=== PATIENT | male | born 1955 | race African-American/Black ===

== ENCOUNTER 2016-12-17 09:34 | Outpatient (CLI) | payer BC ==
[~2016-12-17 09:34] MED LIST: ACETAMINOPHEN 325 MG TABLET PO PRN; DIPHENHYDRAMINE HCL 25 MG CAPSULE PO PRN; FUROSEMIDE INJ/PF 20 MG/2 ML SDV IV PRN
[2016-12-17 10:23] LABS: HEMATOCRIT 25.6 % (37.9-51.0); HEMOGLOBIN 8.2 g/dL (13.5-17.0); MEAN CORPUSCULAR HEMOGLOBIN 22.8 pg (27.0-33.4); MEAN CORPUSCULAR VOLUME 71 fl (80-97); RED BLOOD COUNT 3.59 10^6/uL (4.35-5.55); RED CELL DISTRIBUTION WIDTH 20.1 % (11.5-14.0); WHITE BLOOD COUNT 11.2 10^3/uL (4.0-10.5)
[2016-12-17] MEDS ORDERED: NORMAL SALINE 250 ML IV PRN (10:43)
[2016-12-17 17:19] VITALS: BP 149/77
[2016-12-17 17:59] LABS: HEMATOCRIT 32.5 % (37.9-51.0); HGB HCT DIFFERENCE -0.7; MEAN CORPUSCULAR HEMOGLOBIN 23.8 pg (27.0-33.4); MEAN CORPUSCULAR HGB CONC 32.6 g/dL (32.0-36.0); MEAN CORPUSCULAR VOLUME 73 fl (80-97); RED BLOOD COUNT 4.44 10^6/uL (4.35-5.55); RED CELL DISTRIBUTION WIDTH 21.8 % (11.5-14.0); WHITE BLOOD COUNT 11.1 10^3/uL (4.0-10.5)
[2016-12-17 18:05] LABS: HEMOGLOBIN 10.6 g/dL (13.5-17.0)
== END 2016-12-17 18:00 | disposition home or self-care (01) ==
LOC: II 09:34 → 2N 10:16 → II 18:00
PROVIDERS: ATTEND Internal Medicine Medical Oncology
PROC: 30233N1 Transfusion of Nonautologous Red Blood Cells into Peripheral Vein, Percutaneous Approach (ICD-10-PCS; principal; 2016-12-17)
DX: D64.9 Anemia, unspecified (principal); N18.4 Chronic kidney disease, stage 4 (severe)
CPT/HCPCS: 86900; 86901; 36415; 36430; 86850; 85027; 86920; P9016

== ENCOUNTER 2018-02-22 12:08 | Emergency (ER) | payer MEDICARE, BC ==
--- NOTE | 2018-02-22 13:22 | ER Document Report ---
ED Medical Screen (RME) - General Chief Complaint: Flank Pain Stated Complaint: BACK PAIN Time Seen by Provider: 02/22/18 13:21 TRAVEL OUTSIDE OF THE [place] IN LAST 30 DAYS: No - HPI Notes: 02/22/18 13:22 Right flank pain ongoing for a few days increase today. Does have a history of kidney disease along atrial fibrillation congestive heart failure. Denies any fevers chills or difficulty in urinating. - Related Data Allergies/Adverse Reactions: No Known Allergies Allergy (Verified 02/22/18 12:09) Past Medical History - Past Medical History Cardiac Medical History: Reports: Hx Congestive Heart Failure, Hx Hypercholesterolemia, Hx Hypertension Neurological Medical History: Reports: Hx Cerebrovascular Accident Endocrine Medical History: Reports: Hx Diabetes Mellitus Type 2 Renal/ Medical History: Reports: Hx End Stage Renal Disease, Hx Renal Insufficiency. Denies: Hx Peritoneal Dialysis Psychiatric Medical History: Reports: Hx Depression Past Surgical History: Reports: Hx Urinary Tract Surgery - Immunizations Hx Diphtheria, Pertussis, Tetanus Vaccination: No History of Influenza Vaccine for 03/2017 - 08/2017 Season: Refused Review of Systems - Review of Systems Constitutional: No symptoms reported EENT: No symptoms reported Cardiovascular: No symptoms reported Respiratory: No symptoms reported Gastrointestinal: No symptoms reported Genitourinary: Flank pain Male Genitourinary: No symptoms reported Musculoskeletal: No symptoms reported Skin: No symptoms reported Hematologic/Lymphatic: No symptoms reported Neurological/Psychological: No symptoms reported Physical Exam - Vital signs Vitals: Temp Pulse Resp BP Pulse Ox 98.5 F 89 16 166/71 H 100 02/22/18 12:12 02/22/18 12:12 02/22/18 12:12 02/22/18 12:12 02/22/18 12:12 - Respiratory Respiratory status: No respiratory distress Chest status: Nontender Breath sounds: Normal Chest palpation: Normal Course - Vital Signs Vital signs: Temp Pulse Resp BP Pulse Ox 98.5 F 89 16 166/71 H 100 02/22/18 12:12 02/22/18 12:12 02/22/18 12:12 02/22/18 12:12 02/22/18 12:12 Doctor's Discharge - Discharge Referrals: ALEXIS RUBIO MD [Primary Care Provider] - Follow up as needed
[2018-02-22 14:25] LABS: ABSOLUTE BASOPHILS # (AUTO) 0.1 10^3/uL (0.0-0.2); ABSOLUTE EOSINOPHILS # (AUTO) 0.4 10^3/uL (0.0-0.6); ABSOLUTE LYMPHOCYTES (AUTO) 1.1 10^3/uL (0.5-4.7); ABSOLUTE MONOCYTES (AUTO) 0.9 10^3/uL (0.1-1.4); ABSOLUTE NEUT (AUTO) 7.8 10^3/uL (1.7-8.2); BASOPHILS % (AUTO) 0.9 % (0-2); HEMATOCRIT 28.2 % (37.9-51.0); HEMOGLOBIN 9.3 g/dL (13.5-17.0); MEAN CORPUSCULAR HEMOGLOBIN 25.8 pg (27.0-33.4); MEAN CORPUSCULAR VOLUME 78 fl (80-97); MONOCYTES % (AUTO) 8.6 % (3-13); PLATELET COUNT 266 10^3/uL (150-450); RED BLOOD COUNT 3.62 10^6/uL (4.35-5.55); RED CELL DISTRIBUTION WIDTH 21.5 % (11.5-14.0); SEGMENTED NEUTROPHILS % (AUTO) 75.5 % (42-78); TOTAL CELLS COUNTED % (AUTO) 100 %; WHITE BLOOD COUNT 10.4 10^3/uL (4.0-10.5)
--- NOTE | 2018-02-22 14:40 | RADIOLOGY REPORT (SQ) ---
EXAM DESCRIPTION: CT LTD RENAL STONE PROTOCOL ON COMPLETED DATE/TIME: 02/22/2018 1:58 pm REASON FOR STUDY: right Yflank right flank and right lower quadrant pain COMPARISON: CT abdomen and pelvis 02/01/2015 TECHNIQUE: CT scan of the abdomen and pelvis performed without intravenous or oral contrast. Images reviewed with lung, soft tissue, and bone windows. Reconstructed coronal and sagittal MPR images revi ewed. All images stored on PACS. All CT scanners at this facility use dose modulation, iterative reconstruction, and/or weight based d osing when appropriate to reduce radiation dose to as low as reasonably achievable (ALARA). [facility]: Dose Right [facility]: CareDose [facility]: Dose Right [facility]: Teradose 4D [facility]: [employer] RADIATION DOSE: CT Rad equipment meets quality standard of care and radiation dose reduction techniq ues were employed. CTDIvol: 18.6 mGy. DLP: 1096 mGy-cm.mGy. LIMITATIONS: None. FINDINGS: LOWER CHEST: No significant findings. No nodules or infiltrates. NON-CONTRASTED LIVER, SPLEEN, ADRENALS: Evaluation limited by lack of IV contrast. No identified sign ificant masses. PANCREAS: No masses. No peripancreatic inflammatory changes. GALLBLADDER: No identified stones by CT criteria. No inflammatory changes to suggest cholecystitis. RIGHT KIDNEY AND URETER: No suspicious masses. Assessment limited by lack of IV contrast. No signif icant calcifications. No hydronephrosis or hydroureter. LEFT KIDNEY AND URETER: No suspicious masses. Assessment limited by lack of IV contrast. No signifi cant calcifications. No hydronephrosis or hydroureter. AORTA AND RETROPERITONEUM: No aneurysm. No retroperitoneal masses or adenopathy. BOWEL AND PERITONEAL CAVITY: No obvious masses or inflammatory changes. No free fluid. APPENDIX: Normal. PELVIS, BLADDER, AND ABDOMINAL WALL:No abnormal masses. No free fluid. Bladder normal. BONES: Diffuse degenerative changes lumbar spine. OTHER: No other significant finding. IMPRESSION: NO SIGNIFICANT OR ACUTE PROCESS IN THE ABDOMEN OR PELVIS. COMMENT: Quality ID # [id number]: Final reports with documentation of one or more dose reduction techniques (e.g., Automated exposure control, adjustment of the mA and/or kV according to patient size, use of iterative reconstruction technique) TECHNICAL DOCUMENTATION: JOB ID: [id number] [employer]- All Rights Reserved Reading location - IP/workstation name: [email or web address]
[2018-02-22 14:45] LABS: ALANINE AMINOTRANSFERASE 16 U/L (21-72); ALBUMIN 3.5 g/dL (3.5-5.0); ALKALINE PHOSPHATASE 57 U/L (38-126); ANION GAP 14 (5-19); ASPARTATE AMINO TRANSFERASE 11 U/L (17-59); BILIRUBIN,DIRECT 0.4 mg/dL (0.0-0.4); BILIRUBIN,TOTAL 0.4 mg/dL (0.2-1.3); BLOOD UREA NITROGEN 53 mg/dL (7-20); CALCIUM 8.6 mg/dL (8.4-10.2); CARBON DIOXIDE 21 mmol/L (22-30); CHLORIDE 110 mmol/L (98-107); GLUCOSE 215 mg/dL (75-110); LIPASE 109.4 U/L (23-300); POTASSIUM 4.9 mmol/L (3.6-5.0); SODIUM 144.8 mmol/L (137-145); TOTAL PROTEIN 6.4 g/dL (6.3-8.2)
[2018-02-22 15:04] LABS: APPEARANCE,URINE CLEAR; BILIRUBIN,URINE NEGATIVE (NEGATIVE); COLOR,URINE YELLOW; GLUCOSE, URINE NEGATIVE (NEGATIVE); KETONES,URINE NEGATIVE (NEGATIVE); LEUKOCYTE ESTERASE,URINE SMALL (NEGATIVE); NITRITE,URINE NEGATIVE (NEGATIVE); PROTEIN,URINE 100 mg/dL (NEGATIVE); URINE SPECIFIC GRAVITY 1.011; UROBILINOGEN,URINE NEGATIVE mg/dL (<2.0)
[2018-02-22] MEDS ORDERED: OXYCODONE-ACETAMINOPHEN 5-325 MG TABLET PO ONE (15:35)
--- NOTE | 2018-02-22 15:36 | ER Document Report ---
ED General - General Chief Complaint: Flank Pain Stated Complaint: BACK PAIN Time Seen by Provider: 02/22/18 13:21 Notes: Patient is complaining of pain in the right back/flank region that started evening. It has been constant and progressively worsening in intensity. Patient starts in the right CVA region and goes across the back to the left side of his back in a similar location. Patient has a history of kidney disease and is in stage IV kidney failure followed by Dr. Sutton locally. Current pain is worse with walking or moving, turning over on the stretcher. Patient did have an appointment with a local urologist and had a scan of his urinary tract in the office. He has a history of scarring of the urethra and having catheterization procedures to relieve that obstruction. His most recent such procedure was on December 22. He is currently been prescribed Flomax since that office visit on . Patient denies any fever or chills or sweats. Denies any difficulty or burning urinations. Patient is an NIDDM, hypertensive, history of congestive heart failure. Has been anemic in the past and required transfusions. Has also gotten transfusions of iron. TRAVEL OUTSIDE OF THE [place] IN LAST 30 DAYS: No - Related Data Allergies/Adverse Reactions: No Known Allergies Allergy (Verified 02/22/18 12:09) Past Medical History - Social History Smoking Status: Never Smoker Family History: Reviewed & Not Pertinent, DM, Hypertension Patient has suicidal ideation: No Patient has homicidal ideation: No - Past Medical History Cardiac Medical History: Reports: Hx Congestive Heart Failure, Hx Hypercholesterolemia, Hx Hypertension Neurological Medical History: Reports: Hx Cerebrovascular Accident Endocrine Medical History: Reports: Hx Diabetes Mellitus Type 2 Renal/ Medical History: Reports: Hx End Stage Renal Disease, Hx Renal Insufficiency Psychiatric Medical History: Reports: Hx Depression Past Surgical History: Reports: Hx Urinary Tract Surgery - Immunizations Hx Diphtheria, Pertussis, Tetanus Vaccination: No Review of Systems - Review of Systems Notes: REVIEW OF SYSTEMS: CONSTITUTIONAL : Denies fever. EENT: Denies eye, ear, nose or mouth or throat pain or other symptoms. CARDIOVASCULAR: Denies chest pain. RESPIRATORY: Denies cough, chest congestion, or shortness of breath. GASTROINTESTINAL: Denies abdominal pain or nausea, vomiting, or diarrhea. GENITOURINARY: Denies difficulty or painful urinating, urinary frequency, blood in urine. MUSCULOSKELETAL: See HPI. SKIN: Denies rash or skin lesions. NEUROLOGICAL: Denies LOC or altered mental status. Denies headache. Denies sensory loss or motor deficits. ALL OTHER SYSTEMS REVIEWED AND NEGATIVE. Physical Exam - Vital signs Vitals: Temp Pulse Resp BP Pulse Ox 98.5 F 89 16 166/71 H 100 02/22/18 12:12 02/22/18 12:12 02/22/18 12:12 02/22/18 12:12 02/22/18 12:12 Interpretation: Hypertensive - Mild Notes: PHYSICAL EXAMINATION: GENERAL: Well-appearing, in no acute distress. HEAD: Atraumatic, normocephalic. EYES: Pupils equal round and reactive to light, extraocular movements intact. ENT: oropharynx clear without exudates. Moist mucous membranes. NECK: Normal range of motion, supple. LUNGS: Breath sounds clear and equal bilaterally. HEART: Regular rate and rhythm without murmurs. ABDOMEN: Soft, nontender. No guarding or rebound. No masses. BACK: No tenderness throughout entire back. EXTREMITIES: Normal range of motion without pain. NEUROLOGICAL: Normal speech, normal gait. Normal sensory, motor, and reflex exams. Awake, alert, and oriented x3. Cranial nerves normal. PSYCH: Normal mood, normal affect. SKIN: Warm, dry, no rashes. - Notes Notes: PHYSICAL EXAMINATION: GENERAL: Well-appearing, in no acute distress. HEAD: Atraumatic, normocephalic. EYES: Pupils equal round and reactive to light, extraocular movements intact. ENT: oropharynx clear without exudates. Moist mucous membranes. NECK: Normal range of motion, supple. LUNGS: Breath sounds clear and equal bilaterally. HEART: Regular rate and rhythm without murmurs. ABDOMEN: Soft, nontender. No guarding or rebound. No masses. BACK: Tender in the right CVA/flank region. No tenderness of the vertebra of the lumbar spine. Denies neck pain. Denies joint pain or swelling. EXTREMITIES: Normal range of motion without pain. NEUROLOGICAL: Appears to be in pain when he moves on the stretcher or stands up. Normal speech, normal gait. Normal sensory, motor, and reflex exams. Awake, alert, and oriented x3. Cranial nerves normal. PSYCH: Normal mood, normal affect. SKIN: Warm, dry, no rashes. Course - Vital Signs Vital signs: Temp Pulse Resp BP Pulse Ox 98.8 F 69 16 161/80 H 98 02/22/18 16:07 02/22/18 16:07 02/22/18 16:07 02/22/18 16:07 02/22/18 16:07 - Laboratory Result Diagrams: 02/22/18 14:10 02/22/18 14:10 Laboratory results interpreted by me: 02/22/18 02/22/18 02/22/18 14:10 14:10 14:44 RBC 3.62 L Hgb 9.3 L Hct 28.2 L MCV 78 L MCH 25.8 L RDW 21.5 H Lymphocytes % 11.0 L Chloride 110 H Carbon Dioxide 21 L BUN 53 H Creatinine 4.12 H Est GFR ( Amer) 18 L Est GFR (Non-Af Amer) 15 L Glucose 215 H AST 11 L ALT 16 L Urine Protein 100 H Ur Leukocyte Esterase SMALL H - Diagnostic Test Radiology reviewed: Image reviewed, Reports reviewed - CT scan of the abdomen and pelvis without contrast is normal. Discharge - Discharge Clinical Impression: Acute flank pain, Renal insufficiency Condition: Stable Disposition: HOME, SELF-CARE Additional Instructions: Flank Pain We weren't able to prove an exact cause for your flank pain. Pain in the flank can be caused by a muscle strain or spasm. Sometimes a kidney stone causes pain, but can't be found on our tests. Infection in the kidney should be evident on a urine test. Early shingles can occasionally cause flank pain, without the rash that proves the diagnosis. On rare occasions, disease of the pancreas, aorta, spleen, or colon can create pain in the flank. At this time, there's no evidence of a dangerous condition, and it seems safe for you to be at home. If the pain goes away and does not come back, no further testing will be needed. If pain persists, or becomes more severe, we may need to repeat some tests or order additional new testing. Blood in the urine, urgency to urinate frequently, and pain that radiates to the groin can indicate a kidney stone. Fever may mean that the pain is due to infection, either of the kidney or the colon (diverticulitis). If your pain is early shingles, you should develop an eruption of blisters in the painful area within a few days. Call the doctor or return if you have pain that is spreading or becoming more severe, pain that does not resolve with time, fever, or any other new symptoms. NORMAL EXAM AND WORKUP: At this time, your examination and workup show no significant abnormality. No significant abnormal physical findings are noted. All laboratory, EKG, and imaging (x-ray, CT scans, ultrasound) studies that were ordered show no significant abnormality. Although your examination and all studies that were ordered showed no significant abnormal finding, there are no examinations and no studies that are 100% accurate. There is always the possibility that some abnormality could exist and not be detected with physical examination or within the limits and capabilities of laboratory and other studies. You should return or follow up as you were instructed on your visit today for further evaluation if your symptoms do not resolve. ORAL NARCOTIC MEDICATION: You have been given a prescription for pain control. This medication is a narcotic. It's best taken with food, as nausea can result if taken on an empty stomach. Don't operate machinery or drive within six hours of taking this medication. Do not combine this medicine with alcohol, or with any medication which can cause sedation (such as cold tablets or sleeping pills) unless you get permission from the physician. Narcotics tend to cause constipation. If possible, drink plenty of fluids and eat a diet high in fiber and fruits. FOLLOW-UP CARE: If you have been referred to a physician for follow-up care, call the physician s office for an appointment as you were instructed or within the next two days. If you experience worsening or a significant change in your symptoms, notify the physician immediately or return to the Emergency Department at any time for re-evaluation. See your doctor in 2-3 days if you continue to have symptoms and pain. Return for us to reevaluate at any time if you develop high fevers or have other new or worsening symptoms. Prescriptions: Oxycodone HCl/Acetaminophen [Percocet 5-325 mg Tablet] 1 - 2 tab PO Q6HP PRN # 12 tablet PRN Reason: Referrals: ALEXIS RUBIO MD [ACTIVE STAFF] - Follow up as needed
[2018-02-22 16:10] VITALS: BP 161/80
== END 2018-02-22 16:11 | disposition home or self-care (01) ==
LOC: ER 12:08
DX: R10.9 Unspecified abdominal pain (principal); M54.9 Dorsalgia, unspecified; I12.9 Hypertensive chronic kidney disease with stage 1 through stage 4 chronic kidney disease, or unspecified chronic kidney disease; E11.22 Type 2 diabetes mellitus with diabetic chronic kidney disease; N18.4 Chronic kidney disease, stage 4 (severe)
CPT/HCPCS: 99284; 36415; 87086; 83690; 85025; 80053; 81001; 76380; A9270

== ENCOUNTER 2018-05-22 17:59 | Emergency (ER) | payer MEDICARE, BC ==
[2018-05-22 18:29] LABS: ABSOLUTE BASOPHILS # (AUTO) 0.1 10^3/uL (0.0-0.2); ABSOLUTE LYMPHOCYTES (AUTO) 1.6 10^3/uL (0.5-4.7); ABSOLUTE MONOCYTES (AUTO) 1.1 10^3/uL (0.1-1.4); ABSOLUTE NEUT (AUTO) 9.8 10^3/uL (1.7-8.2); BASOPHILS % (AUTO) 0.6 % (0-2); EOSINOPHILS % (AUTO) 0.2 % (0-6); HEMATOCRIT 30.1 % (37.9-51.0); HEMOGLOBIN 9.9 g/dL (13.5-17.0); LYMPHOCYTES % (AUTO) 12.6 % (13-45); MEAN CORPUSCULAR HEMOGLOBIN 23.4 pg (27.0-33.4); MEAN CORPUSCULAR HGB CONC 32.9 g/dL (32.0-36.0); MEAN CORPUSCULAR VOLUME 71 fl (80-97); PLATELET COUNT 425 10^3/uL (150-450); RED BLOOD COUNT 4.22 10^6/uL (4.35-5.55); SEGMENTED NEUTROPHILS % (AUTO) 77.6 % (42-78); TOTAL CELLS COUNTED % (AUTO) 100 %; WHITE BLOOD COUNT 12.7 10^3/uL (4.0-10.5)
[2018-05-22 18:41] LABS: ANION GAP 18 (5-19); BLOOD UREA NITROGEN 81 mg/dL (7-20); CALCIUM 9.2 mg/dL (8.4-10.2); CARBON DIOXIDE 16 mmol/L (22-30); CHLORIDE 108 mmol/L (98-107); GLUCOSE 218 mg/dL (75-110); POTASSIUM 5.1 mmol/L (3.6-5.0); SODIUM 142.1 mmol/L (137-145)
--- NOTE | 2018-05-22 19:19 | ER Document Report ---
ED General - General Chief Complaint: Abnormal Lab Results Stated Complaint: ABNORMAL LABS Time Seen by Provider: 05/22/18 18:18 Notes: Patient is a 62-year-old male with a past history of essential hypertension, chronic kidney disease secondary to essential hypertension who presents with concerns of possible hyperkalemia. Patient states that she was contacted by her physician internist Dr. Bruner regarding concerns of a potassium of 6.2 obtained on outpatient laboratory today. The patient states that he did not have any symptoms, otherwise feels well and is here simply because of concerns of possible hyperkalemia. States that he had mild hyperkalemia in the past but has never required hospitalization or advanced treatment for this. States that he will likely be advancing to dialysis and is scheduled to have a dialysis catheter placed this upcoming week. Denies any recent medication changes. Has been taking all medications as directed. TRAVEL OUTSIDE OF THE [place] IN LAST 30 DAYS: No - Related Data Allergies/Adverse Reactions: No Known Allergies Allergy (Verified 05/22/18 17:59) Past Medical History - General Information source: Patient - Social History Smoking Status: Never Smoker Frequency of alcohol use: None Drug Abuse: None Lives with: Spouse/Significant other Family History: Reviewed & Not Pertinent, DM, Hypertension Patient has suicidal ideation: No Patient has homicidal ideation: No - Past Medical History Cardiac Medical History: Reports: Hx Congestive Heart Failure, Hx Hypercholesterolemia, Hx Hypertension Denies: Hx Coronary Artery Disease, Hx Heart Attack Pulmonary Medical History: Denies: Hx Asthma, Hx Bronchitis, Hx COPD, Hx Pneumonia Neurological Medical History: Denies: Hx Cerebrovascular Accident, Hx Seizures Endocrine Medical History: Reports: Hx Diabetes Mellitus Type 2 Renal/ Medical History: Reports: Hx End Stage Renal Disease, Hx Renal Insufficiency. Denies: Hx Peritoneal Dialysis Musculoskeletal Medical History: Reports Hx Arthritis - GENERALIZED Psychiatric Medical History: Reports: Hx Depression Past Surgical History: Reports: Hx Urinary Tract Surgery - Immunizations Hx Diphtheria, Pertussis, Tetanus Vaccination: Yes Review of Systems - Review of Systems Notes: Constitutional: Negative for fever. HENT: Negative for sore throat. Eyes: Negative for visual changes. Cardiovascular: Negative for chest pain. Respiratory: Negative for shortness of breath. Gastrointestinal: Negative for abdominal pain, vomiting or diarrhea. Genitourinary: Negative for dysuria. Musculoskeletal: Negative for back pain. Skin: Negative for rash. Neurological: Negative for headaches, weakness or numbness. 10 point ROS negative except as marked above and in HPI. Physical Exam - Vital signs Vitals: Temp Pulse Resp BP Pulse Ox 98.1 F 88 16 188/87 H 98 05/22/18 18:03 05/22/18 18:03 05/22/18 18:03 05/22/18 18:03 05/22/18 18:03 Interpretation: Hypertensive Notes: PHYSICAL EXAMINATION: GENERAL: Well-appearing, well-nourished and in no acute distress. HEAD: Atraumatic, normocephalic. EYES: Pupils equal round and reactive to light, extraocular movements intact, sclera anicteric, conjunctiva are normal. ENT: nares patent, oropharynx clear without exudates. Moist mucous membranes. NECK: Normal range of motion, supple without lymphadenopathy LUNGS: Breath sounds clear to auscultation bilaterally and equal. No wheezes rales or rhonchi. HEART: Regular rate and rhythm without murmurs ABDOMEN: Soft, nontender, normoactive bowel sounds. No guarding, no rebound. No masses appreciated. EXTREMITIES: Normal range of motion, no pitting or edema. No cyanosis. NEUROLOGICAL: No focal neurological deficits. Moves all extremities spontaneously and on command. PSYCH: Normal mood, normal affect. SKIN: Warm, Dry, normal turgor, no rashes or lesions noted. Course - Re-evaluation Re-evalutation: 05/22/18 19:18 Patient presents today with his physician internist being concerned that his potassium was elevated to 6.2 on an outpatient check. This appears to be a lab error has the patient's potassium is 5.1 on recheck today similar to his previous level secondary to chronic kidney disease. EKG without any acute changes. Patient is otherwise asymptomatic. No indication for any acute medical therapies for his hyperkalemia or emergent dialysis. I have advised that he should follow closely with his physician internist. At this time will discharge with return precautions and follow-up recommendations. Verbal discharge instructions given a the bedside and opportunity for questions given. Patient is in agreement with this plan and has verbalized understanding of return precautions and the need for primary care follow-up in the next 24-72 hours. - Vital Signs Vital signs: Temp Pulse Resp BP Pulse Ox 98.1 F 88 9 L 173/91 H 100 05/22/18 18:03 05/22/18 18:03 05/22/18 19:01 05/22/18 19:01 05/22/18 19:01 - Laboratory Result Diagrams: 05/22/18 18:20 05/22/18 18:20 Laboratory results interpreted by me: 05/22/18 05/22/18 18:20 18:20 WBC 12.7 H RBC 4.22 L Hgb 9.9 L Hct 30.1 L MCV 71 L MCH 23.4 L RDW 23.0 H Lymphocytes % 12.6 L Absolute Neutrophils 9.8 H Potassium 5.1 H Chloride 108 H Carbon Dioxide 16 L BUN 81 H Creatinine 3.65 H Est GFR ( Amer) 20 L Est GFR (Non-Af Amer) 17 L Glucose 218 H - EKG Interpretation by Me Additional EKG results interpreted by me: 05/22/18 19:18 Sinus rhythm. Rate 78. No ST elevations or depressions. Flattening of the T waves in V5 and 6. QTC is 433. Discharge - Discharge Clinical Impression: Essential hypertension, Hyperkalemia Chronic kidney disease Qualifiers: Chronic kidney disease stage: unspecified stage Qualified Code(s): N18.9 - Chronic kidney disease, unspecified Condition: Good Disposition: HOME, SELF-CARE Additional Instructions: Your potassium is 5.1 today. While this is mildly high, it is not high enough to do anything emergently at this time. Your EKG is otherwise normal. Please follow-up with your physician internist regarding today's emergency. Return for any additional concerns you may have.
[2018-05-22 19:24] VITALS: BP 173/91
--- NOTE | 2018-05-22 19:42 | EKG REPORT ---
SEVERITY:- BORDERLINE ECG - SINUS RHYTHM BORDERLINE T WAVE ABNORMALITIES : Confirmed by: Mau Montanez MD 22-May-2018 19:42:26
== END 2018-05-22 19:41 | disposition home or self-care (01) ==
LOC: ER 17:59
DX: E87.5 Hyperkalemia (principal); I13.2 Hypertensive heart and chronic kidney disease with heart failure and with stage 5 chronic kidney disease, or end stage renal disease; I50.9 Heart failure, unspecified; E11.22 Type 2 diabetes mellitus with diabetic chronic kidney disease; N18.6 End stage renal disease; E78.00 Pure hypercholesterolemia, unspecified
CPT/HCPCS: 36415; 80048; 85025; 93005; 93010; 99284

== ENCOUNTER 2018-05-25 09:10 | Day surgery (SDC) | payer MEDICARE, BC ==
[2018-05-25] MEDS ORDERED: OXYCODONE-ACETAMINOPHEN 5-325 MG TABLET ONE (09:52)
[2018-05-25] MEDS ORDERED: DIAZEPAM 5 MG TABLET ONE (09:52)
[2018-05-25 10:13] LABS: HEMATOCRIT 32.6 % (37.9-51.0); HEMOGLOBIN 10.6 g/dL (13.5-17.0); MEAN CORPUSCULAR HEMOGLOBIN 23.1 pg (27.0-33.4); MEAN CORPUSCULAR HGB CONC 32.4 g/dL (32.0-36.0); MEAN CORPUSCULAR VOLUME 71 fl (80-97); PLATELET COUNT 442 10^3/uL (150-450); RED BLOOD COUNT 4.57 10^6/uL (4.35-5.55); RED CELL DISTRIBUTION WIDTH 22.8 % (11.5-14.0); WHITE BLOOD COUNT 12.8 10^3/uL (4.0-10.5)
[2018-05-25 10:37] LABS: ANION GAP 13 (5-19); BLOOD UREA NITROGEN 67 mg/dL (7-20); CALCIUM 9.3 mg/dL (8.4-10.2); CARBON DIOXIDE 20 mmol/L (22-30); CHLORIDE 111 mmol/L (98-107); GLUCOSE 125 mg/dL (75-110); POTASSIUM 5.2 mmol/L (3.6-5.0); SODIUM 143.7 mmol/L (137-145)
[2018-05-25] MEDS ORDERED: CEFAZOLIN INJ 1 GM VIAL ONE (10:43)
[2018-05-25] MEDS ORDERED: LIDOCAINE 0.5% INJ-PF (5 MG/ML) 50 ML SDV ONE (10:43)
[2018-05-25] MEDS ORDERED: FENTANYL CITRATE INJ/PF 100 MCG/2 ML AMPUL ONE (10:43)
[2018-05-25] MEDS ORDERED: MIDAZOLAM 2 MG/2 ML INJ ONE (10:43)
[2018-05-25] MEDS ORDERED: BACITRACIN INJ 50,000 UNIT VIAL ONE (10:44)
[2018-05-25] MEDS ORDERED: CEFAZOLIN INJ 1 GM VIAL IV ONE (10:48)
[2018-05-25] MEDS ORDERED: CEFAZOLIN 1 GM/D5W RTU 0 GM/0 ML RTUPB IV ONE (10:52)
--- NOTE | 2018-05-25 12:05 | PDOC H&P ---
General Chief Complaint: This patient is referred in for placement of a permacatheter. His glomerular filtration rate has gone to 13 and his fairing man, Dr. Sutton thinks he needs to be on hemodialysis - Diagnosis (1) Chronic kidney disease Is this a Current Diagnosis?: Yes (2) Diabetes mellitus type 2 in nonobese Is this a Current Diagnosis?: Yes (3) Hx of ischemic right MCA stroke Is this a Current Diagnosis?: Yes (4) Hypertension Is this a Current Diagnosis?: Yes - Current Medications/Allergies Home Medications: Furosemide [Lasix 20 mg Tablet] 20 mg PO QAM 07/07/14 Aspirin [Ecotrin] 81 mg PO DAILY PRN 09/04/14 Potassium Chloride 10 meq PO DAILY 09/04/14 Apixaban [Eliquis 2.5 mg Tablet] 2.5 mg PO BID 07/07/15 Allergies/Adverse Reactions: No Known Allergies Allergy (Verified 05/25/18 09:55) Past Medical History Cardiac Medical History: Reports: Congestive Heart Failure, Hyperlipidema, Hypertension Denies: Coronary Artery Disease, Myocardial Infarction Pulmonary Medical History: Denies: Asthma, Bronchitis, Chronic Obstructive Pulmonary Disease (COPD), Pneumonia Neurological Medical History: Denies: Seizures Endocrine Medical History: Reports: Diabetes Mellitus Type 2 Renal/ Medical History: Reports: End Stage Renal Disease Musculoskeltal Medical History: Reports: Arthritis - GENERALIZED Psychiatric Medical History: Reports: Depression Hematology: Reports: Anemia, Bleeding Tendencies Family History Family History: Reviewed & Not Pertinent, DM, Hypertension Parental Family History Reviewed: No Children Family History Reviewed: No Sibling(s) Family History Reviewed.: No Social History Smoking Status: Never Smoker Frequency of Alcohol Use: None Hx Recreational Drug Use: No Drugs: None Hx Prescription Drug Abuse: No Physical Exam Vital Signs: Temp Pulse Resp BP Pulse Ox 98.2 F 75 18 158/96 H 100 05/25/18 09:15 05/25/18 09:15 05/25/18 09:15 05/25/18 09:15 05/25/18 09:15 Intake & Output 05/24/18 05/25/18 05/26/18 06:59 06:59 06:59 Weight 104.78 kg Additional comments: Constitutional: Well-developed well-nourished -Chinese gentleman. No apparent acute distress. Eyes: Mucous membranes pink and moist, pupils equal and reactive to light. Conjunctiva normal. Cornea normal. ENT: Hearing grossly normal. External pinna normal to inspection. Teeth intact. Tongue normal to inspection. Cardiac: Heart sounds 1 and 2 normal. No murmurs. Respiratory breath sounds are present bilaterally, normal. Normal respiratory effort. Skin: Normal to inspection. No ulcers, normal turgor. Abdomen: Soft, nontender. Liver and spleen are not palpably enlarged. Bowel sounds are normal. Possible small umbilical hernia noted. Surgical scars absent. Psychiatric: Judgment, memory, insight seem normal. Mood is pleasant and appropriate. Extremities: Upper extremities show normal range of movement. Pulses present noted to the radial arteries. Capillary refill normal. No cyanosis noted. No muscle wasting noted. Impression/Plan Plan: In this patient with chronic kidney disease stage V on the verge of needing hemodialysis, PermCath insertion to be done. The procedure was described to the patient and his significant other. Also the risks, benefits, expected outcome and alternatives. His questions and concerns were fully addressed and he wishes to proceed. The patient understands that he will need to have a fistula placed early so as to keep the permacatheter time to a minimum.
--- NOTE | 2018-05-25 12:07 | Discharge Summary ---
Discharge Summary (SDC) - Discharge Final Diagnosis: #1 chronic kidney disease stage V. 2. Diabetes mellitus type 2. 3. Hypertension. Date of Surgery: 05/25/18 Discharge Date: 05/25/18 Condition: Good Treatment or Instructions: Discharge home [after recovery per ASU criteria]. Diet , [renal],as tolerated, when fully awake advance as tolerated. Activities within moderation encouraged. Follow up in my office by appointment in about [1 week]. Call for appointment. Leave wounds [covered], [keep clean and dry, until office visit in 1 week]. Hold of on school/work [until evaluation in office]. Meds per med rec. May use [id number] medication for pain. May shower [in 48 hrs], [try to keep operated area as dry as possible]. Referrals: MAI KIM MD [ACTIVE STAFF] - 06/03/18 2:15 pm Discharge Diet: Other (Comments) - Renal, diabetic. Respiratory Treatments at Home: Deep Breathing/Coughing Discharge Activity: Activity As Tolerated Report the Following to Your Physician Immediately: Shortness of Breath, Unusual Bleeding
--- NOTE | 2018-05-25 12:10 | Operative Report ---
Operative Report DATE OF SURGERY: 05/25/18 PREOPERATIVE DIAGNOSIS: #1 chronic kidney disease stage V. 2. Diabetes mellitus type 2. 3. Hypertension. POSTOPERATIVE DIAGNOSIS: #1 chronic kidney disease stage V. 2. Diabetes mellitus type 2. 3. Hypertension. OPERATION: 1. Ultrasound-guided real-time access in the right internal jugular vein. 2. PermCath insertion via real-time ultrasound-guided access of the right internal jugular vein. 3. Angiogram and interpretation. SURGEON: MAI CALLAHAN METAL MACHINE OPERATOR: None. ANESTHESIA: Moderate Sedation TISSUE REMOVED OR ALTERED: Not applicable. COMPLICATIONS: None. ESTIMATED BLOOD LOSS: 5 mL. INTRAOPERATIVE FINDINGS: Of a satisfactory right internal jugular vein, estimated to 1.5 cm satisfactory access under real-time ultrasound guidance. Good position with the tip of the catheter down in the right atrial pool. Easy egress of blood and ingress of heparinized solution through both ports. PROCEDURE: In this patient with chronic kidney disease stage V verging on end-stage renal disease, primarily filtration rate of 13, hemodialysis is now indicated. A permacatheter is to be inserted in order to accomplish this. He will need to transition to a catheter-based dialysis access in the near future. After obtaining informed consent, the patient was taken to the [Hog Confinement System Manager] and positioned supine. The [right neck] and chest were prepared with chlorhexidine and draped out with sterile linen. After the " universal timeout", in which it was verified that the patient continued to receive antibiotic, the procedure commenced. A steriley sheathed ultrasound probe was used to evaluate the [ right internal jugular] vein. Local anesthesia was infiltrated adjacent to the probe. Access into the [right internal jugular] vein was obtained using a micropuncture needle, followed by micropuncture wire and then a micropuncture catheter. This was followed by introduction of a 0.035 guidewire the tip of which was placed down into the inferior vena cava . A 23 cm long PermCath was now positioned over the chest and an exit site marked and locally anesthetized , the catheter was placed between the 2 incisions. Proximally, the catheter was now positioned using a peel-away sheath, after dilation. Easy ingress of heparinized solution and egress of blood obtained through both ports. A completion angiogram was done by injecting contrast. The findings were as dictated. The neck incision was now closed using interrupted 3-0 PDS to the subcutaneous tissues, the catheter was anchored at the exit site using 3-0 PDS. A Biopatch device was now placed adjacent to the catheter. Dressings were applied and the procedure concluded. xposure time: [0.7 minutes]. Copies of the dictated operative report for Dr. Mai Fair MD.concluded. Copies of the dictated operative report for Dr. Mai Fair MD.
[2018-05-25 15:23] VITALS: BP 147/81
--- NOTE | 2018-05-25 15:39 | RADIOLOGY REPORT (SQ) ---
EXAM DESCRIPTION: TUNNELED CENTRAL LINE; GUIDANCE FLUOROSCOPIC COMPLETED DATE/TIME: 05/25/2018 1:53 pm REASON FOR STUDY: T82.858A Z79.[address] SUPERVISOR (CURRENT) USE OF ANTICOAGULANTS COMPARISON: AP chest 09/03/2014 FLUOROSCOPY TIME: 0.2 minutes 15 images saved to PACS. TECHNIQUE: Intra-operative images acquired during surgical procedure to evaluate progress. NUMBER OF IMAGES: 15 digital images LIMITATIONS: None. FINDINGS: Intraprocedural imaging and fluoro during placement of a right-sided jugular central venou s dialysis catheter with the tip in the right atrium. Please see the operative report further detail s IMPRESSION: IMAGE(S) OBTAINED DURING PROCEDURE. COMMENT: Quality ID 145: Final reports for procedures using fluoroscopy that document radiation exp osure indices, or exposure time and number of fluorographic images (if radiation exposure indices are not available) Please consult full operative report of the attending physician for description of the procedure. TECHNICAL DOCUMENTATION: JOB ID: [id number] [employer]- All Rights Reserved Reading location - IP/workstation name: [email or web address], [facility]
--- NOTE | 2018-05-25 15:39 | RADIOLOGY REPORT (SQ) ---
EXAM DESCRIPTION: TUNNELED CENTRAL LINE; GUIDANCE FLUOROSCOPIC COMPLETED DATE/TIME: 05/25/2018 1:53 pm REASON FOR STUDY: T82.858A Z79.01 STONE BREAKER (CURRENT) USE OF ANTICOAGULANTS COMPARISON: AP chest 09/03/2014 FLUOROSCOPY TIME: 0.2 minutes 15 images saved to PACS. TECHNIQUE: Intra-operative images acquired during surgical procedure to evaluate progress. NUMBER OF IMAGES: 15 digital images LIMITATIONS: None. FINDINGS: Intraprocedural imaging and fluoro during placement of a right-sided jugular central venou s dialysis catheter with the tip in the right atrium. Please see the operative report further detail s IMPRESSION: IMAGE(S) OBTAINED DURING PROCEDURE. COMMENT: Quality ID 145: Final reports for procedures using fluoroscopy that document radiation exp osure indices, or exposure time and number of fluorographic images (if radiation exposure indices are not available) Please consult full operative report of the attending physician for description of the procedure. TECHNICAL DOCUMENTATION: JOB ID: [id number] [employer]- All Rights Reserved Reading location - IP/workstation name: [email or web address]
== END 2018-05-25 15:00 | disposition home or self-care (01) ==
LOC: CCL 09:10
PROVIDERS: ATTEND Surgery
DX: E11.22 Type 2 diabetes mellitus with diabetic chronic kidney disease (principal); I12.0 Hypertensive chronic kidney disease with stage 5 chronic kidney disease or end stage renal disease; N18.5 Chronic kidney disease, stage 5; Z79.82 Long term (current) use of aspirin; Z86.73 Personal history of transient ischemic attack (TIA), and cerebral infarction without residual deficits; Z79.01 Long term (current) use of anticoagulants
CPT/HCPCS: 36415; 85027; 80048; 36558; 76937; 77001; C1713; C1752; J2250; J3490 ×2; J0690; A9270 ×2; J3010; J1644

== ENCOUNTER 2018-06-22 09:53 | Day surgery (SDC) | payer MEDICARE, BC ==
[2018-06-12 10:41] LABS: HEMATOCRIT 28.6 % (37.9-51.0); HEMOGLOBIN 9.2 g/dL (13.5-17.0); MEAN CORPUSCULAR HEMOGLOBIN 23.4 pg (27.0-33.4); MEAN CORPUSCULAR HGB CONC 32.3 g/dL (32.0-36.0); MEAN CORPUSCULAR VOLUME 72 fl (80-97); PLATELET COUNT 390 10^3/uL (150-450); RED BLOOD COUNT 3.95 10^6/uL (4.35-5.55); RED CELL DISTRIBUTION WIDTH 24.1 % (11.5-14.0); WHITE BLOOD COUNT 6.9 10^3/uL (4.0-10.5)
[2018-06-12 11:03] LABS: ANION GAP 9 (5-19); BLOOD UREA NITROGEN 18 mg/dL (7-20); CALCIUM 8.4 mg/dL (8.4-10.2); CARBON DIOXIDE 29 mmol/L (22-30); CHLORIDE 104 mmol/L (98-107); GLUCOSE 163 mg/dL (75-110); POTASSIUM 4.3 mmol/L (3.6-5.0); SODIUM 142.1 mmol/L (137-145)
[~2018-06-22 09:53] MED LIST changes: -ACETAMINOPHEN 325 MG TABLET PO PRN; +CEFAZOLIN 1 GM/D5W RTU 1 GM/50 ML RTUPB IV PRN; -DIPHENHYDRAMINE HCL 25 MG CAPSULE PO PRN; -FUROSEMIDE INJ/PF 20 MG/2 ML SDV IV PRN
[2018-06-22 10:35] LABS: HEMATOCRIT 29.4 % (37.9-51.0); MEAN CORPUSCULAR HEMOGLOBIN 24.1 pg (27.0-33.4); MEAN CORPUSCULAR VOLUME 71 fl (80-97); PLATELET COUNT 312 10^3/uL (150-450); RED BLOOD COUNT 4.15 10^6/uL (4.35-5.55); RED CELL DISTRIBUTION WIDTH 23.8 % (11.5-14.0); WHITE BLOOD COUNT 9.6 10^3/uL (4.0-10.5)
[2018-06-22] MEDS ORDERED: LIDOCAINE 1% INJ-PF (10 MG/ML) 30 ML SDV ONE (10:38)
[2018-06-22] MEDS ORDERED: BUPIVACAINE HCL 0.25 % INJ/PF (2.5 MG/1 ML) 30 ML VIAL ONE (10:38)
[2018-06-22 10:39] LABS: INTERNATIONAL RATION (INR) 1.08; PROTHROMBIN TIME 14.6 SEC (11.4-15.4)
[2018-06-22] MEDS ORDERED: LIDOCAINE 0.5% INJ-PF (5 MG/ML) 50 ML SDV ONE (10:39)
[2018-06-22] MEDS ORDERED: HEPARIN SOD (PORCINE) 1,000 UNIT/ML 10 ML VIAL ONE (10:39)
[2018-06-22 10:40] LABS: PARTIAL THROMBOPLASTIN TIME 32.9 SEC (23.5-35.8)
[2018-06-22] MEDS ORDERED: BACITRACIN INJ 50,000 UNIT VIAL ONE (10:40)
[2018-06-22] MEDS ORDERED: CEFAZOLIN 1 GM/D5W RTU 1 GM/50 ML RTUPB IV ONE (11:05)
[2018-06-22 11:08] LABS: ANION GAP 11 (5-19); BLOOD UREA NITROGEN 33 mg/dL (7-20); CALCIUM 8.9 mg/dL (8.4-10.2); CARBON DIOXIDE 27 mmol/L (22-30); CHLORIDE 103 mmol/L (98-107); GLUCOSE 94 mg/dL (75-110); POTASSIUM 3.8 mmol/L (3.6-5.0); SODIUM 141.2 mmol/L (137-145)
[2018-06-22] MEDS ORDERED: FENTANYL CITRATE INJ/PF 100 MCG/2 ML AMPUL ONE (11:13)
[2018-06-22] MEDS ORDERED: MIDAZOLAM 2 MG/2 ML INJ ONE (11:14)
[2018-06-22] MEDS ORDERED: ONDANSETRON HCL INJ/PF 4 MG/2 ML SDV ONE (11:14)
[2018-06-22] MEDS ORDERED: PROPOFOL INJ 200 MG/20 ML VIAL IV ONE (11:14)
[2018-06-22] MEDS ORDERED: NITROGLYCERIN/D5W 0 MG/0 ML RTUINJ IV ONE (11:26)
[2018-06-22] MEDS ORDERED: DIPHENHYDRAMINE HCL 50 MG/ML VIAL IV PRN (13:23)
[2018-06-22] MEDS ORDERED: OXYCODONE-ACETAMINOPHEN 5-325 MG TABLET PO PRN ×2 (13:23)
[2018-06-22] MEDS ORDERED: FENTANYL CITRATE INJ/PF 100 MCG/2 ML AMPUL IV PRN ×3 (13:23)
[2018-06-22] MEDS ORDERED: PROMETHAZINE HCL INJ 25 MG/1 ML VIAL IV PRN ×2 (13:23)
[2018-06-22] MEDS ORDERED: MEPERIDINE HCL/PF INJ 25 MG/1 ML DISP.SYRIN IV PRN (13:23)
--- NOTE | 2018-06-22 13:24 | Discharge Summary ---
Discharge Summary (SDC) - Discharge Final Diagnosis: #1 end-stage renal disease on hemodialysis. 2. Diabetes mellitus type 2. 3. Hypertension. Date of Surgery: 06/22/18 Discharge Date: 06/22/18 Condition: Fair Treatment or Instructions: Discharge home [after recovery per ASU criteria]. Diet , [renal],as tolerated, when fully awake advance as tolerated. Activities within moderation encouraged. Follow up in my office by appointment in about [1 week]. Call for appointment. Leave wounds [covered], [keep clean and dry, until office visit in 1 week]. Hold of on school/work [until evaluation in office]. Meds per med rec. Percocet. May shower [in 48 hrs], [try to keep operated area as dry as possible]. Prescriptions: Oxycodone HCl/Acetaminophen [Percocet 5-325 mg Tablet] 1 tab PO ASDIR PRN #15 tab PRN Reason: Referrals: SUDHA HERNADEZ FNP [Primary Care Provider] - Discharge Diet: Other (Comments) - Renal, diabetic. Discharge Activity: Activity As Tolerated Report the Following to Your Physician Immediately: Shortness of Breath, Unusual Bleeding
--- NOTE | 2018-06-22 13:29 | Operative Report ---
Operative Report DATE OF SURGERY: 06/22/18 PREOPERATIVE DIAGNOSIS: #1 end-stage renal disease on hemodialysis. 2. Diabet es mellitus type 2. 3. Hypertension. POSTOPERATIVE DIAGNOSIS: #1 end-stage renal disease on hemodialysis. 2. Diabetes mellitus type 2. 3. Hypertension. OPERATION: Insertion of transposed radiocephalic fistula, right forearm. SURGEON: MAI CALLAHAN TYPE ROLLING MACHINE OPERATOR: None. ANESTHESIA: LMAC TISSUE REMOVED OR ALTERED: Not applicable. COMPLICATIONS: None. ESTIMATED BLOOD LOSS: 5 mL. INTRAOPERATIVE FINDINGS: Of a unusually robust radial artery easily 4 mm in diameter, 3 mm internal. Thick-walled. Not much apparent calcification though. Vein easily about 3.5-4 mm in diameter. Satisfactory fistula with with good bruit satisfactory continuous murmur in vein, continuous with some phasicity in proximal artery, almost entirely aphasic distal to the fistula. Auscultated with stethoscope post procedure. PROCEDURE: Operative Report PROCEDURE: After reviewing the procedure with the patient, [she] was taken to the operating room. The patient was sedated and the right upper extremity] prepared with chlorhexidine and draped out with sterile linen. After the "" universal timeout", in which it was verified that the patient [received IV antibiotics] the procedure commenced. The sterilely sheathed ultrasound probe was used to evaluate the left venous and arterial systems, pertinent to the previously done vein mapping. Local anesthesia was infiltrated and a longitudinal incision made over the distal forearm, over the most distal reasonable looking radial artery. Dissection proceeded through the subcutaneous tissues down to the radial artery. This was dissected out proximally and distally for about 2 cm. . Rubber loops were placed on either end. The cephalic vein was now dissected out for a distance of about 6 cm, through a separate lateral incision. The patient was given 2500 units of heparin intravenously. The cephalic vein was transected and irrigated with heparinized solution. It was transposed between the 2 incisions. The artery was controlled proximally and distally with rubber loops. The vein was transposed into the arterial incision using a tendon passer. An arteriotomy approximately 1.2 cm in length was made, the artery was irrigated proximally and distally with heparinized solution. The transected vein was now spatulated, it was then anastomosed end to end to side into the radial artery. This was done using a continuous suture of 6-0 Prolene. Controls of the fistula were now released and it was analyzed using a Doppler probe. Hemostasis was secured once optimal function was assured, the wound was irrigated with antibiotic containing solution and closed. Closure was done using interrupted 3-0 PDS for the subcutaneous tissues. The skin was closed, in either wound, using a continuous subcutaneous suture of 4-0 Monocryl which was reinforced with Steri-Strips over benzoin. I then left the operative field and returned with a stethoscope covere d with a sterile Tegaderm dressing. This allowed external auscultation of the fistula. Auscultation was [satisfactory]. The procedure was concluded by applying a Kerlix dressing over the surgical site. DICTATING PHYSICIAN: MAI KIM M.D.
[2018-06-22] MEDS ORDERED: GLYCOPYRROLATE 1 MG/5 ML SYRINGE ONE (14:14)
[2018-06-22] MEDS ORDERED: PHENYLEPHRINE HCL INJ/PF 10 MG/1 ML SDV ONE (14:14)
[2018-06-22 15:27] VITALS: BP 152/89
== END 2018-06-22 16:00 | disposition home or self-care (01) ==
LOC: OROUT 09:53
PROVIDERS: ATTEND Surgery
DX: I13.2 Hypertensive heart and chronic kidney disease with heart failure and with stage 5 chronic kidney disease, or end stage renal disease (principal); I50.9 Heart failure, unspecified; N18.6 End stage renal disease; E11.22 Type 2 diabetes mellitus with diabetic chronic kidney disease; Z99.2 Dependence on renal dialysis; I69.851 Hemiplegia and hemiparesis following other cerebrovascular disease affecting right dominant side; Z79.891 Long term (current) use of opiate analgesic; Z79.84 Long term (current) use of oral hypoglycemic drugs; Z79.01 Long term (current) use of anticoagulants; Z79.899 Other long term (current) drug therapy; D64.9 Anemia, unspecified; E66.9 Obesity, unspecified; Z68.32 Body mass index [BMI] 32.0-32.9, adult
CPT/HCPCS: 36821; 36415 ×2; 85027 ×2; 85610; 85730; 80048 ×2; J2250; J3490 ×4; J0690; J3010; J1644; J2370; J2405; J2704; 1844

== ENCOUNTER 2018-07-31 11:12 | Emergency (ER) | payer MEDICARE, BC ==
[2018-07-31 11:18] VITALS: BP 123/62
[2018-07-31] MEDS ORDERED: HYDROCODONE/ACETAMINOPHEN 5-325 MG TABLET PO ONE (13:54)
--- NOTE | 2018-07-31 13:57 | ER Document Report ---
ED Medical Screen (RME) - General Chief Complaint: Trouble Walking Stated Complaint: LEFT ARM PAIN Time Seen by Provider: 07/31/18 13:50 Primary Care Provider: SUDHA HERNADEZ FNP [Primary Care Provider] - Follow up as needed Notes: 62-year-old male with a history of renal failure and on dialysis presents the emergency department with complaints of left finger pain, swelling that started on 07/25/18. Patient denies any trauma or injury. He denies any fever or chills. Patient states that he had dialysis yesterday. I have greeted and performed a rapid initial assessment of this patient. A comprehensive ED assessment and evaluation of the patient, analysis of test results and completion of the medical decision making process will be conducted by additional ED providers. PHYSICAL EXAMINATION: GENERAL: Well-appearing, well-nourished and in no acute distress. HEAD: Atraumatic, normocephalic. EYES: Pupils equal round extraocular movements intact, conjunctiva are normal. ENT: Nares patent NECK: Normal range of motion LUNGS: No respiratory distress Musculoskeletal: 5th and 2nd finger swelling and tenderness to palpation. 2+ radial pulse. NEUROLOGICAL: Normal speech, normal gait. PSYCH: Normal mood, normal affect. SKIN: Warm, Dry, normal turgor, no rashes or lesions noted. TRAVEL OUTSIDE OF THE [place] IN LAST 30 DAYS: No - Related Data Allergies/Adverse Reactions: No Known Allergies Allergy (Verified 07/31/18 11:13) Past Medical History - Social History Chew tobacco use (# tins/day): No Frequency of alcohol use: Rare Drug Abuse: None - Past Medical History Cardiac Medical History: Reports: Hx Congestive Heart Failure, Hx Hypercholesterolemia, Hx Hypertension Denies: Hx Coronary Artery Disease, Hx Heart Attack Pulmonary Medical History: Denies: Hx Asthma, Hx Bronchitis, Hx COPD, Hx Pneumonia Neurological Medical History: Denies: Hx Cerebrovascular Accident, Hx Seizures Endocrine Medical History: Reports: Hx Diabetes Mellitus Type 2 Renal/ Medical History: Reports: Hx End Stage Renal Disease - HD x1 month, Hx Renal Insufficiency. Denies: Hx Peritoneal Dialysis Musculoskeltal Medical History: Denies Hx Arthritis Psychiatric Medical History: Reports: Hx Depression Past Surgical History: Reports: Hx Urinary Tract Surgery - Immunizations Hx Diphtheria, Pertussis, Tetanus Vaccination: Yes History of Influenza Vaccine for 03/2017 - 08/2017 Season: Yes Influenza Administration Date for 03/2017 - 08/2017 Season: 04/01/18 Physical Exam - Vital signs Vitals: Temp Pulse Resp BP Pulse Ox 98.9 F 81 16 123/62 97 07/31/18 11:17 07/31/18 11:17 07/31/18 11:17 07/31/18 11:17 07/31/18 11:17 Course - Vital Signs Vital signs: Temp Pulse Resp BP Pulse Ox 98.9 F 81 16 123/62 97 07/31/18 11:17 07/31/18 11:17 07/31/18 11:17 07/31/18 11:17 07/31/18 11:17 Doctor's Discharge - Discharge Referrals: SUDHA HERNADEZ FNP [Primary Care Provider] - Follow up as needed
--- NOTE | 2018-07-31 14:26 | RADIOLOGY REPORT (SQ) ---
EXAM DESCRIPTION: HAND LEFT 3 VIEWS COMPLETED DATE/TIME: 07/31/2018 2:04 pm REASON FOR STUDY: pain COMPARISON: None. EXAM PARAMETERS: NUMBER OF VIEWS: Three views. TECHNIQUE: AP, lateral and oblique radiographic images acquired of the left hand. LIMITATIONS: None. FINDINGS: No fracture. Joint space narrowing base of 1st metacarpal with osteophyte formation. Rossy nt space narrowing in multiple interphalangeal joints. No erosions. IMPRESSION: Osteoarthritis. TECHNICAL DOCUMENTATION: JOB ID: [id number] [employer]- All Rights Reserved Reading location - IP/workstation name: [email or web address]
== END 2018-07-31 14:41 | disposition left against medical advice (07) ==
LOC: ER 11:12
DX: M79.645 Pain in left finger(s) (principal); M79.89 Other specified soft tissue disorders; I12.0 Hypertensive chronic kidney disease with stage 5 chronic kidney disease or end stage renal disease; E11.22 Type 2 diabetes mellitus with diabetic chronic kidney disease; N18.6 End stage renal disease; Z99.2 Dependence on renal dialysis; Z53.20 Procedure and treatment not carried out because of patient's decision for unspecified reasons
CPT/HCPCS: 99283

== ENCOUNTER 2018-08-27 09:42 | Day surgery (SDC) | payer BC, MEDICARE ==
[2018-08-27 11:09] LABS: HEMATOCRIT 31.3 % (37.9-51.0); HEMOGLOBIN 10.5 g/dL (13.5-17.0); MEAN CORPUSCULAR HEMOGLOBIN 26.4 pg (27.0-33.4); MEAN CORPUSCULAR HGB CONC 33.5 g/dL (32.0-36.0); MEAN CORPUSCULAR VOLUME 79 fl (80-97); PLATELET COUNT 329 10^3/uL (150-450); RED BLOOD COUNT 3.97 10^6/uL (4.35-5.55); RED CELL DISTRIBUTION WIDTH 24.9 % (11.5-14.0); WHITE BLOOD COUNT 8.5 10^3/uL (4.0-10.5)
[2018-08-27 11:21] LABS: ANION GAP 11 (5-19); BLOOD UREA NITROGEN 40 mg/dL (7-20); CALCIUM 8.8 mg/dL (8.4-10.2); CARBON DIOXIDE 27 mmol/L (22-30); CHLORIDE 106 mmol/L (98-107); GLUCOSE 118 mg/dL (75-110); POTASSIUM 4.8 mmol/L (3.6-5.0); SODIUM 143.9 mmol/L (137-145)
[2018-08-27] MEDS ORDERED: CEFAZOLIN 1 GM/D5W RTU 1 GM/50 ML RTUPB IV ONE (11:30)
[2018-08-27] MEDS ORDERED: LIDOCAINE 0.5% INJ-PF (5 MG/ML) 50 ML SDV ONE (11:35)
[2018-08-27] MEDS ORDERED: FENTANYL CITRATE INJ/PF 100 MCG/2 ML AMPUL ONE (11:45)
[2018-08-27] MEDS ORDERED: HEPARIN SOD (PORCINE) 5,000 UNIT/ML 1 ML SYRINGE ONE (11:45)
[2018-08-27] MEDS ORDERED: MIDAZOLAM 2 MG/2 ML INJ ONE (11:45)
--- NOTE | 2018-08-27 13:01 | Discharge Summary ---
Discharge Summary (SDC) - Discharge Final Diagnosis: #1 right radiocephalic fistula malfunction. 2. End-stage renal disease on hemodialysis. 3. Diabetes mellitus type II. 4. Hypertension. Date of Surgery: 08/27/18 Condition: Good Treatment or Instructions: Discharge home [after recovery per ASU criteria]. Diet , [renal],as tolerated, when fully awake advance as tolerated. Activities within moderation encouraged. Follow up in my office by appointment in about [1 week]. Call for appointment. Leave wounds [covered], [keep clean and dry, until hemodialysis]. Hold of on school/work [until evaluation in office]. Meds per med rec. May shower [in 48 hrs], [try to keep operated area as dry as possible]. Referrals: SUDHA HERNADEZ FNP [Primary Care Provider] - Discharge Diet: Other (Comments) - Renal, diabetic. Respiratory Treatments at Home: Deep Breathing/Coughing Discharge Activity: Activity As Tolerated Report the Following to Your Physician Immediately: Shortness of Breath, Unusual Bleeding
--- NOTE | 2018-08-27 13:03 | PDOC H&P ---
General Chief Complaint: This patient with a right forearm radiocephalic fistula has come in because of inadequate dialysis. - Current Medications/Allergies Home Medications: Furosemide [Lasix 20 mg Tablet] 20 mg PO QAM 07/07/14 Aspirin [Ecotrin] 81 mg PO DAILY PRN 09/04/14 Apixaban [Eliquis 2.5 mg Tablet] 2.5 mg PO BID 07/07/15 Amlodipine/Atorvastatin [Amlodipine-Atorvast 5-10 mg] 1 each PO ASDIR PRN 06/02/18 Carvedilol [Coreg 12.5 mg Tablet] 12.5 mg PO ASDIR PRN 06/02/18 Clonidine HCl [Catapres] 0.2 mg PO ASDIR PRN 06/02/18 Hydralazine HCl [Apresoline 25 mg Tablet] 25 mg PO BID 06/02/18 Allergies/Adverse Reactions: No Known Allergies Allergy (Verified 07/31/18 11:13) Past Medical History Cardiac Medical History: Reports: Congestive Heart Failure, Hyperlipidema, Hypertension Denies: Coronary Artery Disease, Myocardial Infarction Pulmonary Medical History: Denies: Asthma, Bronchitis, Chronic Obstructive Pulmonary Disease (COPD), Pneumonia Neurological Medical History: Denies: Seizures Endocrine Medical History: Reports: Diabetes Mellitus Type 2 Renal/ Medical History: Reports: End Stage Renal Disease - HD x1 month Musculoskeltal Medical History: Denies: Arthritis Psychiatric Medical History: Reports: Depression Hematology: Reports: Anemia, Bleeding Tendencies Family History Family History: Reviewed & Not Pertinent, DM, Hypertension Parental Family History Reviewed: No Children Family History Reviewed: No Sibling(s) Family History Reviewed.: No Social History Smoking Status: Former Smoker Frequency of Alcohol Use: None Hx Recreational Drug Use: No Drugs: None Hx Prescription Drug Abuse: No Physical Exam Vital Signs: Temp Pulse Resp BP Pulse Ox 98.4 F 73 16 149/89 H 100 08/27/18 11:15 08/27/18 11:15 08/27/18 11:15 08/27/18 11:15 08/27/18 11:15 Intake & Output 08/26/18 08/27/18 08/28/18 06:59 06:59 06:59 Weight 99.79 kg Additional comments: Constitutional: Well-developed well-nourished -[place] gentleman. No apparent acute distress. Eyes: Mucous membranes pink and moist, pupils equal and reactive to light. Conjunctiva normal. Cornea normal. ENT: Hearing grossly normal. External pinna normal to inspection. Teeth intact. Tongue normal to inspection. Cardiac: Heart sounds normal. Respiratory: Normal respiratory effort. S Psychiatric: Judgment, memory, insight seem normal. Mood is pleasant and appropriate. Extremities: Upper extremities show normal range of movement. Pulses present noted to the radial arteries. Capillary refill normal. No cyanosis noted. No muscle wasting noted. Right radiocephalic fistula noted. Somewhat softer than expected. There is Impression/Plan Plan: The patient's right forearm AV fistula needs some angioplastic maturation for optimal function. The procedure, its risks, benefits, expected outcome and alternatives acceptable to the patient. We will proceed.
--- NOTE | 2018-08-27 13:19 | RADIOLOGY REPORT (SQ) ---
EXAM DESCRIPTION: FISTULAGRAM W/PLASTY COMPLETED DATE/TIME: 08/27/2018 12:49 pm REASON FOR STUDY: T82.858A T82.858A STENOSIS OF OTHER VASCULAR PROSTH DEV/GRFT, INIT COMPARISON: None. FLUOROSCOPY TIME: 0.7 minute. 29 images saved to PACS. TECHNIQUE: Intra-operative images acquired during surgical procedure to evaluate progress. NUMBER OF IMAGES: 29 images. LIMITATIONS: None. FINDINGS: Imaging in fluoroscopy during upper extremity dialysis access evaluation and plasty by Dr. Fair . Please refer to the operative report for further details. IMPRESSION: INTRA PROCEDURAL IMAGING ABOVE . COMMENT: Quality ID [id number]: Final reports for procedures using fluoroscopy that document radiation exp osure indices, or exposure time and number of fluorographic images (if radiation exposure indices are not available) Please consult full operative report of the attending physician for description of the procedure. TECHNICAL DOCUMENTATION: JOB ID: [id number] [employer]- All Rights Reserved Reading location - IP/workstation name: [email or web address]
[2018-08-27 14:15] VITALS: BP 168/91
[2018-08-28] MEDS ORDERED: CEFAZOLIN 1 GM/D5W RTU 1 GM/50 ML RTUPB IV PRN (05:00)
--- NOTE | 2018-08-28 11:54 | Operative Report ---
Operative Report DATE OF SURGERY: 08/27/18 PREOPERATIVE DIAGNOSIS: 1. Malfunctioning radiocephalic, right. 2. End-stage renal disease on hemodialysis. 3. Diabetes mellitus type 2. 4. Hypertension. POSTOPERATIVE DIAGNOSIS: 1. Malfunctioning radiocephalic, right. 2. End-stage renal disease on hemodialysis. 3. Diabetes mellitus type 2. 4. Hypertension. OPERATION: 1. Needle access into arteriovenous fistula under ultrasound guidance. 2. Ultrasound evaluation of right forearm AV fistula. 3. Angioplasty and fistula. 4. Angiogram and interpretation. SURGEON: MAI CALLAHAN MAIL PROCESSING EQUIPMENT MECHANIC: None. ANESTHESIA: Moderate Sedation TISSUE REMOVED OR ALTERED: Not applicable. COMPLICATIONS: None. ESTIMATED BLOOD LOSS: 5 mL. INTRAOPERATIVE FINDINGS: Of a satisfactory right radiocephalic fistula, transposed. Ultrasound demonstrated its depth at about 4 mm. The width of the fistula is from about 5.1 to about 6 mm. On ultrasound. Satisfactory and safe access was gained, under real-time ultrasound guidance. Angiogram demonstrated a satisfactory inflow mostly visualized through the distal radial artery. No actual stenosis. Relatively small from about 3 cm from the anastomosis extending upwards. A very large branch noted at about 2 cm from the anastomosis and a second at about 20 cm. Satisfactory dilatation up to 7 mm. Notably improvement in fistula function with pressure on the large branch. The findings noted on the patient's skin as well as on a picture to be given to the dialysis technicians. The patient does need ligation of the large draining branch and this will be arranged ideally for next week. PROCEDURE: PROCEDURE: After verifying the procedure and having obtained informed consent, the patient's right arm and forearm were prepared with Chlorhexidine and draped out with sterile linen. The fistula was evaluated on the ultrasound as mentioned. Local anesthesia infiltrated. Percutaneous access into the fistula ,[retrograde], obtained about [20 cm] from the arteriovenous anastomosis using a micro puncture needle followed by micro puncture wire and then a micro puncture catheter. This was done on ultrasound guidance using real-time access into the vein. Ultrasound was also used to size the vein. Angiogram demonstrated the aforementioned findings. Angioplasty was elected. A 0.035 [place] wire was inserted, and over this, a 5 Wallisian short introducer was placed, this was followed by a 7 mm high-pressure angioplasty balloon . Angioplasty was now done from about 3 cm to about 15 cm from the anastomosis.. This was done very carefully and in sequence, giving a 4 cm length of the balloon, and i using a 3 mils syringe sustained for 2 minutes. Completion angiogram demonstrated [satisfactory result]. The instrumentation was now withdrawn over hand pressure for 10 minutes. Dressings applied. Procedure concluded. DICTATING PHYSICIAN: MAI KIM M.D. cc: MAI KIM M.D. ([id number]) >>
== END 2018-08-27 13:50 | disposition home or self-care (01) ==
LOC: CCL 09:42
PROVIDERS: ATTEND Surgery
DX: T82.858A Stenosis of other vascular prosthetic devices, implants and grafts, initial encounter (principal); Y83.2 Surgical operation with anastomosis, bypass or graft as the cause of abnormal reaction of the patient, or of later complication, without mention of misadventure at the time of the procedure; I13.2 Hypertensive heart and chronic kidney disease with heart failure and with stage 5 chronic kidney disease, or end stage renal disease; E11.22 Type 2 diabetes mellitus with diabetic chronic kidney disease; N18.6 End stage renal disease; Z99.2 Dependence on renal dialysis; I50.9 Heart failure, unspecified; Z79.899 Other long term (current) drug therapy; Z79.82 Long term (current) use of aspirin; E78.5 Hyperlipidemia, unspecified; D64.9 Anemia, unspecified; Z87.891 Personal history of nicotine dependence
CPT/HCPCS: 36415; 85027; 80048; 36902; 76937; C1752; C1887; Q9967; C1769; J2250; J1644 ×2; J0690; J3010; J3490

== ENCOUNTER 2018-08-31 12:35 | Day surgery (SDC) | payer MEDICARE ==
[~2018-08-31 12:35] MED LIST changes: +BUPIVACAINE HCL 0.25 % INJ/PF (2.5 MG/1 ML) 30 ML VIAL ONE; -CEFAZOLIN 1 GM/D5W RTU 1 GM/50 ML RTUPB IV PRN; +LIDOCAINE 0.5% INJ-PF (5 MG/ML) 50 ML SDV ONE
[2018-08-31] MEDS ORDERED: CALCIUM GLUCONATE 1000 MG/10 ML INJ IV ONE ×2 (15:17→15:30)
[2018-08-31] MEDS ORDERED: INSULIN REG, HUMAN 100 UNIT/ML 3 ML VIAL (PYX) ONE (15:17)
[2018-08-31] MEDS ORDERED: DEXTROSE 50%-WATER 25 GM/50 ML DISP.SYRIN IV ONE ×2 (15:23→16:00)
[2018-08-31] MEDS ORDERED: HUM INSULIN NPH/REG INSULIN HM 100 UNIT/1 ML 3 ML SUBCUT ONE (15:30)
[2018-08-31] MEDS ORDERED: MIDAZOLAM 2 MG/2 ML INJ ONE (16:30)
[2018-08-31] MEDS ORDERED: PROPOFOL INJ 200 MG/20 ML VIAL IV ONE (16:30)
[2018-08-31] MEDS ORDERED: FENTANYL CITRATE INJ/PF 100 MCG/2 ML AMPUL IV PRN ×3 (17:10)
[2018-08-31] MEDS ORDERED: PROMETHAZINE HCL INJ 25 MG/1 ML VIAL IV PRN ×2 (17:10)
[2018-08-31] MEDS ORDERED: ONDANSETRON HCL INJ/PF 4 MG/2 ML SDV IV PRN (17:10)
[2018-08-31] MEDS ORDERED: MORPHINE SULFATE 10 MG/ML INJ IV PRN (17:10)
[2018-08-31] MEDS ORDERED: DIPHENHYDRAMINE HCL 50 MG/ML VIAL IV PRN (17:10)
[2018-08-31] MEDS ORDERED: MEPERIDINE HCL/PF INJ 25 MG/1 ML DISP.SYRIN IV PRN (17:10)
--- NOTE | 2018-08-31 17:37 | PDOC H&P ---
General Chief Complaint: The patient is admitted for ligation of the major branch from his right forearm AV fistula. The intention is to make it more easily accessible and use of 4 hemodialysis. - Diagnosis (1) End-stage renal disease on hemodialysis Is this a Current Diagnosis?: Yes (2) Cardiomyopathy Is this a Current Diagnosis?: Yes (3) Dialysis AV fistula malfunction Is this a Current Diagnosis?: Yes (4) Hx of ischemic right MCA stroke Is this a Current Diagnosis?: Yes (5) Hypertension Is this a Current Diagnosis?: Yes - Current Medications/Allergies Home Medications: Furosemide [Lasix 20 mg Tablet] 20 mg PO QAM 07/07/14 Aspirin [Ecotrin] 81 mg PO DAILY PRN 09/04/14 Apixaban [Eliquis 2.5 mg Tablet] 2.5 mg PO BID 07/07/15 Amlodipine/Atorvastatin [Amlodipine-Atorvast 5-10 mg] 1 each PO ASDIR PRN 06/02/18 Carvedilol [Coreg 12.5 mg Tablet] 12.5 mg PO ASDIR PRN 06/02/18 Clonidine HCl [Catapres] 0.2 mg PO ASDIR PRN 06/02/18 Hydralazine HCl [Apresoline 25 mg Tablet] 25 mg PO BID 06/02/18 Allergies/Adverse Reactions: No Known Allergies Allergy (Verified 07/31/18 11:13) Past Medical History Cardiac Medical History: Reports: Congestive Heart Failure, Hyperlipidema, Hypertension Denies: Coronary Artery Disease, Myocardial Infarction Pulmonary Medical History: Denies: Asthma, Bronchitis, Chronic Obstructive Pulmonary Disease (COPD), Pneumonia Neurological Medical History: Denies: Seizures Endocrine Medical History: Reports: Diabetes Mellitus Type 2 Renal/ Medical History: Reports: End Stage Renal Disease - HD x1 month Musculoskeltal Medical History: Denies: Arthritis Psychiatric Medical History: Reports: Depression Hematology: Reports: Anemia, Bleeding Tendencies Family History Family History: Reviewed & Not Pertinent, DM, Hypertension Parental Family History Reviewed: No Children Family History Reviewed: No Sibling(s) Family History Reviewed.: No Social History Smoking Status: Never Smoker Frequency of Alcohol Use: None Hx Recreational Drug Use: No Drugs: None Hx Prescription Drug Abuse: No Physical Exam Vital Signs: Temp Pulse Resp BP Pulse Ox 97.8 F 65 16 180/93 H 100 08/31/18 13:35 08/31/18 13:35 08/31/18 13:35 08/31/18 13:35 08/31/18 13:35 Intake & Output 08/30/18 08/31/18 09/01/18 06:59 06:59 06:59 Intake Total 0 Balance 0 Weight 103 kg Additional comments: Constitutional: Well-developed well-nourished -[place] gentleman. No apparent acute distress. Eyes: Mucous membranes pink and moist, pupils equal and reactive to light. Conjunctiva normal. Cornea normal. ENT: Hearing grossly normal. External pinna normal to inspection. Teeth intact. Tongue normal to inspection. Cardiac: Heart sounds 1 and 2 normal. Respiratory breath sounds are present bilaterally, normal. Normal respiratory effort. Psychiatric: Judgment, memory, insight seem normal. Mood is pleasant and appropriate. Extremities: Upper extremities show normal range of movement. Pulses present noted to the radial arteries. Capillary refill normal. No cyanosis noted. No muscle wasting noted. Right forearm AV fistula transposed radiocephalic. Impression/Plan Plan: This patient with a functioning right forearm AV fistula has been challenging to dialyze. The fistula was dilated a few days ago. A large draining branch was encountered and the is in today for ligation. The procedure, its risks, benefits, expected outcome of the patient. He wishes to proceed.
--- NOTE | 2018-08-31 17:42 | Discharge Summary ---
Discharge Summary (SDC) - Discharge Final Diagnosis: #1 malfunctioning AV fistula, right radiocephalic, transposed. 2. End-stage renal disease on hemodialysis. 3. Diabetes mellitus. 4. Hypertension. Date of Surgery: 08/31/18 Discharge Date: 08/31/18 Condition: Good Treatment or Instructions: Discharge home [after recovery per ASU criteria]. Diet , [renal],as tolerated, when fully awake advance as tolerated. Activities within moderation encouraged. Follow up in my office by appointment in about [1 week]. Call for appointment. Leave wounds [covered], [keep clean and dry, until office visit in 1 week]. Hold of on school/work [until evaluation in office]. Meds per med rec. Percocet. May shower [in 48 hrs], [try to keep operated area as dry as possible]. Prescriptions: Oxycodone HCl/Acetaminophen [Percocet 5-325 mg Tablet] 1 tab PO ASDIR PRN #15 tab PRN Reason: Referrals: SUDHA HERNADEZ FNP [Primary Care Provider] - Discharge Diet: Other (Comments) - Renal. Respiratory Treatments at Home: Deep Breathing/Coughing Discharge Activity: Activity As Tolerated Report the Following to Your Physician Immediately: Shortness of Breath, Unusual Bleeding
--- NOTE | 2018-08-31 18:01 | Operative Report ---
Operative Report DATE OF SURGERY: 08/31/18 PREOPERATIVE DIAGNOSIS: #1 malfunctioning AV fistula, right radiocephalic, hong sposed. 2. End-stage renal disease on hemodialysis. 3. Diabetes mellitus. 4. Hypertension. POSTOPERATIVE DIAGNOSIS: #1 malfunctioning AV fistula, right radiocephalic, tr ansposed. 2. End-stage renal disease on hemodialysis. 3. Diabetes mellitus. 4. Hypertension. OPERATION: Ligation of a draining vein on right forearm radiocephalic fistula. SURGEON: MAI KIM 1ST COMMUNICATIONS PROFESSIONAL: None. ANESTHESIA: LMAC TISSUE REMOVED OR ALTERED: Not applicable. COMPLICATIONS: None. ESTIMATED BLOOD LOSS: 5 mL. INTRAOPERATIVE FINDINGS: Of a large branch of the right radiocephalic fistula. Ligated with much palpably improvement in fistula. PROCEDURE: Operative Report PROCEDURE: After reviewing the procedure with the patient, he was taken to the operating room. The patient was sedated and the right upper extremity] prepared with chlorhexidine and draped out with sterile linen. After the "" universal timeout", in which it was verified that the patient [received IV antibiotics] the procedure commenced. The sterilely sheathed ultrasound probe was used to evaluate the right arterial venous and arterial systems. Local anesthesia was infiltrated and a longitudinal incision made over the fistula branch. Dissection proceeded through the subcutaneous tissues down to the fistula branch. This was dissected out proximally and distally for about 1 cm. . 3-0 Vicryl was passed around the fistula branch doubly ligated. Closure was done using interrupted 3-0 PDS for the subcutaneous tissues. The skin was closed, in either wound, using a continuous subcutaneous suture of 4-0 Monocryl which was reinforced with Steri- Strips over benzoin. The procedure was concluded by applying a Kerlix dressing over the surgical site. DICTATING PHYSICIAN: MAI KIM M.D.
[2018-08-31 20:06] VITALS: BP 168/88
== END 2018-08-31 19:20 | disposition home or self-care (01) ==
LOC: OROUT 12:35
PROVIDERS: ATTEND Surgery
DX: T82.858A Stenosis of other vascular prosthetic devices, implants and grafts, initial encounter (principal); Y83.2 Surgical operation with anastomosis, bypass or graft as the cause of abnormal reaction of the patient, or of later complication, without mention of misadventure at the time of the procedure; I13.2 Hypertensive heart and chronic kidney disease with heart failure and with stage 5 chronic kidney disease, or end stage renal disease; I50.9 Heart failure, unspecified; E11.22 Type 2 diabetes mellitus with diabetic chronic kidney disease; N18.6 End stage renal disease; Z99.2 Dependence on renal dialysis; E78.5 Hyperlipidemia, unspecified; E66.9 Obesity, unspecified; Z68.32 Body mass index [BMI] 32.0-32.9, adult; Z86.73 Personal history of transient ischemic attack (TIA), and cerebral infarction without residual deficits; Z79.82 Long term (current) use of aspirin; Z79.899 Other long term (current) drug therapy
CPT/HCPCS: 36821; 36415; 82962; 84132; J2250; J0610; J3490 ×2; A9270; J2704; 1844; J1815

== ENCOUNTER 2018-11-04 08:40 | Day surgery (SDC) | payer MEDICARE, OTHER ==
[~2018-11-04 08:40] MED LIST changes: -BUPIVACAINE HCL 0.25 % INJ/PF (2.5 MG/1 ML) 30 ML VIAL ONE; +DIAZEPAM 5 MG TABLET PO PRN; -LIDOCAINE 0.5% INJ-PF (5 MG/ML) 50 ML SDV ONE; +OXYCODONE-ACETAMINOPHEN 5-325 MG TABLET PO PRN
[2018-11-04] MEDS ORDERED: OXYCODONE-ACETAMINOPHEN 5-325 MG TABLET ONE (09:22)
[2018-11-04] MEDS ORDERED: DIAZEPAM 5 MG TABLET ONE (09:22)
[2018-11-04 09:51] LABS: HEMATOCRIT 24.3 % (37.9-51.0); HEMOGLOBIN 8.2 g/dL (13.5-17.0); MEAN CORPUSCULAR HEMOGLOBIN 26.7 pg (27.0-33.4); MEAN CORPUSCULAR HGB CONC 33.6 g/dL (32.0-36.0); MEAN CORPUSCULAR VOLUME 80 fl (80-97); PLATELET COUNT 148 10^3/uL (150-450); RED BLOOD COUNT 3.06 10^6/uL (4.35-5.55); RED CELL DISTRIBUTION WIDTH 21.7 % (11.5-14.0); WHITE BLOOD COUNT 8.7 10^3/uL (4.0-10.5)
[2018-11-04 10:09] LABS: ANION GAP 15 (5-19); BLOOD UREA NITROGEN 67 mg/dL (7-20); CARBON DIOXIDE 23 mmol/L (22-30); CHLORIDE 104 mmol/L (98-107); GLUCOSE 296 mg/dL (75-110); POTASSIUM 5.3 mmol/L (3.6-5.0); SODIUM 142.2 mmol/L (137-145)
[2018-11-04] MEDS ORDERED: MIDAZOLAM 2 MG/2 ML INJ ONE (10:38)
[2018-11-04] MEDS ORDERED: HEPARIN SOD (PORCINE) 5,000 UNIT/ML 1 ML SYRINGE ONE (10:38)
[2018-11-04] MEDS ORDERED: LIDOCAINE 0.5% INJ-PF (5 MG/ML) 50 ML SDV ONE (10:38)
[2018-11-04] MEDS ORDERED: FENTANYL CITRATE INJ/PF 100 MCG/2 ML AMPUL ONE (10:38)
--- NOTE | 2018-11-04 11:46 | Discharge Summary ---
Discharge Summary (SDC) - Discharge Final Diagnosis: #1 malfunctioning AV fistula, right radiocephalic. 2. End-stage renal disease on hemodialysis. 3. Diabetes mellitus type 2. 4. Multiple comorbidities. Date of Surgery: 11/04/18 Discharge Date: 11/04/18 Condition: Good Treatment or Instructions: Discharge home [after recovery per ASU criteria]. Diet , [renal],as tolerated, when fully awake advance as tolerated. Activities within moderation encouraged. Follow up in my office by appointment in about [1 month. Call for appointment. Leave wounds [covered], [keep clean and dry, until hemodialysis. Meds per med rec. May shower [in 48 hrs], [try to keep operated area as dry as possible]. Referrals: SUDHA HERNADEZ FNP [Primary Care Provider] - Discharge Diet: Other (Comments) - Renal, diabetic. Respiratory Treatments at Home: Deep Breathing/Coughing Discharge Activity: Activity As Tolerated Report the Following to Your Physician Immediately: Shortness of Breath, Unusual Bleeding
--- NOTE | 2018-11-04 11:48 | PDOC H&P ---
General Chief Complaint: This patient was referred across for evaluation and treatment of malfunctioning AV fistula. - Current Medications/Allergies Home Medications: Furosemide [Lasix 20 mg Tablet] 20 mg PO QAM 07/07/14 Aspirin [Ecotrin] 81 mg PO DAILY PRN 09/04/14 Apixaban [Eliquis 2.5 mg Tablet] 2.5 mg PO BID 07/07/15 Amlodipine/Atorvastatin [Amlodipine-Atorvast 5-10 mg] 1 each PO ASDIR PRN 06/02/18 Carvedilol [Coreg 12.5 mg Tablet] 12.5 mg PO ASDIR PRN 06/02/18 Clonidine HCl [Catapres] 0.2 mg PO ASDIR PRN 06/02/18 Hydralazine HCl [Apresoline 25 mg Tablet] 25 mg PO BID 06/02/18 Allergies/Adverse Reactions: No Known Allergies Allergy (Verified 07/31/18 11:13) Past Medical History Cardiac Medical History: Reports: Congestive Heart Failure, Hyperlipidema, Hypertension Denies: Coronary Artery Disease, Myocardial Infarction Pulmonary Medical History: Denies: Asthma, Bronchitis, Chronic Obstructive Pulmonary Disease (COPD), Pneumonia Neurological Medical History: Denies: Seizures Endocrine Medical History: Reports: Diabetes Mellitus Type 2 Renal/ Medical History: Reports: End Stage Renal Disease - HD x1 month Musculoskeltal Medical History: Denies: Arthritis Psychiatric Medical History: Reports: Depression Hematology: Reports: Anemia, Bleeding Tendencies Family History Family History: Reviewed & Not Pertinent, DM, Hypertension Parental Family History Reviewed: No Children Family History Reviewed: No Sibling(s) Family History Reviewed.: No Social History Smoking Status: Never Smoker Frequency of Alcohol Use: None Hx Recreational Drug Use: No Drugs: None Hx Prescription Drug Abuse: No Physical Exam Vital Signs: Temp Pulse Resp BP Pulse Ox 97.9 F 73 16 126/64 H 98 11/04/18 09:41 11/04/18 09:41 11/04/18 09:41 11/04/18 09:41 11/04/18 09:41 Intake & Output 11/03/18 11/04/18 11/05/18 06:59 06:59 06:59 Weight 99.79 kg 99.79 kg Additional comments: Constitutional: Well-developed well-nourished -[place] gentleman. No apparent acute distress. Eyes: Mucous membranes pink and moist, pupils equal and reactive to light. C onjunctiva normal. Cornea normal. ENT: Hearing grossly normal. External pinna normal to inspection. Teeth intact. Tongue normal to inspection. Cardiac: Heart sounds 1 and 2 normal. Respiratory: Normal respiratory effort. Skin: Normal to inspection. No ulcers, normal turgor. Psychiatric: Judgment, memory, insight seem normal. Mood is pleasant and appropriate. Extremities: Upper extremities show normal range of movement. Pulses present noted to the radial arteries. Capillary refill normal. No cyanosis noted. No muscle wasting noted. Right forearm AV fistula noted, somewhat soft suggesting inflow's issues. L Impression/Plan Plan: In this patient with a nicely functioning AV fistula, improvement by angioplasty is recommended. The procedure, its risks, benefits, expected outcome and alternatives are familiar to the patient. He has had this done before. He wishes to proceed.
--- NOTE | 2018-11-04 11:51 | Operative Report ---
Operative Report DATE OF SURGERY: 11/04/18 PREOPERATIVE DIAGNOSIS: #1 malfunctioning AV fistula, right radiocephalic. 2. End-stage renal disease on hemodialysis. 3. Diabetes mellitus type 2. 4. Multiple comorbidities. POSTOPERATIVE DIAGNOSIS: #1 malfunctioning AV fistula, right radiocephalic. 2. End-stage renal disease on hemodialysis. 3. Diabetes mellitus type 2. 4. Multiple comorbidities. OPERATION: 1. Needle introduction in the fistula.. 2. Fistula angioplasty, balloon. 3. Angiogram and interpretation. SURGEON: MAI CALLAHAN PAVING INSPECTOR: None. ANESTHESIA: Moderate Sedation TISSUE REMOVED OR ALTERED: Not applicable. COMPLICATIONS: None. ESTIMATED BLOOD LOSS: 2 mL. INTRAOPERATIVE FINDINGS: Of a well founded right forearm radiocephalic fistula. Initially hyper pulsatile in the first 3 cm, cephalad somewhat softer. In concordance with the angiographic finding of a stenosis about 70% of the adjacent lumen, very short and at about 6 cm from the anastomosis. Completely eradicated by angioplasty with a 5 mm balloon. Much better findings to palpation. PROCEDURE: PROCEDURE: After verifying the procedure and having obtained informed consent, the patient's right arm and forearm were prepared with Chlorhexidine and draped out with sterile linen. Local anesthesia infiltrated. Percutaneous access into the fistula ,[retrograde], obtained about [20 cm] from the arteriovenous anastomosis using a micro puncture needle followed by micro puncture wire and then a micro puncture catheter. Ultrasound was also used to size the vein. Angiogram demonstrated the aforementioned findings. Angioplasty was elected. A 0.035 Sabattus wire was inserted, and over this, a 6 [place]ish short introducer was placed, this was followed by a 5 mm angioplasty balloon . Angioplasty was now done at the culprit area just before. This was done very carefully and in the up to about 10 eulalia sustained for 1 minute. Completion angiogram demonstrated [satisfactory result]. The instrumentation was now withdrawn over hand held pressure for 10 minutes . Dressings applied, procedure concluded. DICTATING PHYSICIAN: MAI KIM M.D. cc: MAI KIM M.D. ([id number]) >>
[2018-11-04 13:35] VITALS: BP 160/89
--- NOTE | 2018-11-04 14:09 | RADIOLOGY REPORT (SQ) ---
EXAM DESCRIPTION: FISTULAGRAM W/PLASTY COMPLETED DATE/TIME: 11/04/2018 11:36 am REASON FOR STUDY: T82.858A T82.858A STENOSIS OF OTHER VASCULAR PROSTH DEV/GRFT, INIT COMPARISON: None. FLUOROSCOPY TIME: 9 minutes 5 images saved to PACS. TECHNIQUE: Intra-operative images acquired during surgical procedure to evaluate progress. NUMBER OF IMAGES: Cine fluoroscopic images. LIMITATIONS: None. FINDINGS: Intraoperative fluoroscopic images obtained to evaluate progress. Please see operative re port for detailed description of procedure. IMPRESSION: IMAGE(S) OBTAINED DURING PROCEDURE. COMMENT: Quality ID [id number]: Final reports for procedures using fluoroscopy that document radiation exp osure indices, or exposure time and number of fluorographic images (if radiation exposure indices are not available) Please consult full operative report of the attending physician for description of the procedure. TECHNICAL DOCUMENTATION: JOB ID: [id number] [employer]- All Rights Reserved Reading location - IP/workstation name: [email or web address]
== END 2018-11-04 13:00 | disposition home or self-care (01) ==
LOC: CCL 08:40
PROVIDERS: ATTEND Surgery
DX: T82.858A Stenosis of other vascular prosthetic devices, implants and grafts, initial encounter (principal); Y83.2 Surgical operation with anastomosis, bypass or graft as the cause of abnormal reaction of the patient, or of later complication, without mention of misadventure at the time of the procedure; E11.22 Type 2 diabetes mellitus with diabetic chronic kidney disease; I11.9 Hypertensive heart disease without heart failure; I50.9 Heart failure, unspecified; N18.6 End stage renal disease; Z99.2 Dependence on renal dialysis; I25.10 Atherosclerotic heart disease of native coronary artery without angina pectoris; E78.5 Hyperlipidemia, unspecified; D64.9 Anemia, unspecified; Z01.818 Encounter for other preprocedural examination; Z79.82 Long term (current) use of aspirin; Z79.899 Other long term (current) drug therapy; Z79.01 Long term (current) use of anticoagulants
CPT/HCPCS: 36415; 85027; 80048; 36902; C1752; C1725; C1887; Q9967; C1769; J2250; J1644 ×2; A9270 ×2; J3010; J3490

== ENCOUNTER → 2019-02-24 | Outpatient (CLI) | payer MEDICARE, OTHER | LOC: OD 10:03 | PROVIDERS: ATTEND Physician Assistant Medical | DX: E83.51 Hypocalcemia (principal) | CPT/HCPCS: 36415; 82310; 82330 ==

== ENCOUNTER 2019-03-08 08:57 | Day surgery (SDC) | payer MEDICARE, OTHER ==
[2019-03-05 11:13] LABS: HEMATOCRIT 31.3 % (37.9-51.0); HEMOGLOBIN 10.1 g/dL (13.5-17.0); MEAN CORPUSCULAR HEMOGLOBIN 25.2 pg (27.0-33.4); MEAN CORPUSCULAR HGB CONC 32.4 g/dL (32.0-36.0); MEAN CORPUSCULAR VOLUME 78 fl (80-97); PLATELET COUNT 242 10^3/uL (150-450); RED BLOOD COUNT 4.03 10^6/uL (4.35-5.55); RED CELL DISTRIBUTION WIDTH 20.5 % (11.5-14.0); WHITE BLOOD COUNT 7.2 10^3/uL (4.0-10.5)
[2019-03-05 11:29] LABS: ANION GAP 13 (5-19); BLOOD UREA NITROGEN 32 mg/dL (7-20); CALCIUM 8.5 mg/dL (8.4-10.2); CARBON DIOXIDE 29 mmol/L (22-30); CHLORIDE 99 mmol/L (98-107); GLUCOSE 183 mg/dL (75-110); POTASSIUM 4.7 mmol/L (3.6-5.0)
--- NOTE | 2019-03-05 23:03 | EKG REPORT ---
SEVERITY:- NORMAL ECG - SINUS RHYTHM : Confirmed by: Nayeli Fontaine MD 05-Mar-2019 23:02:27
[~2019-03-08 08:57] MED LIST changes: +CEFAZOLIN 1 GM/D5W RTU 1 GM/50 ML RTUPB IV PRN; -DIAZEPAM 5 MG TABLET PO PRN; -OXYCODONE-ACETAMINOPHEN 5-325 MG TABLET PO PRN
[2019-03-08] MEDS ORDERED: LIDOCAINE 0.5% INJ-PF (5 MG/ML) 50 ML SDV ONE (09:10)
[2019-03-08] MEDS ORDERED: BUPIVACAINE HCL 0.25 % INJ/PF (2.5 MG/1 ML) 30 ML VIAL ONE (09:10)
[2019-03-08] MEDS ORDERED: BACITRACIN INJ 50,000 UNIT VIAL ONE (09:10)
[2019-03-08] MEDS ORDERED: HEPARIN SOD (PORCINE) 1,000 UNIT/ML 1 ML VIAL ONE (09:10)
[2019-03-08] MEDS ORDERED: MIDAZOLAM 2 MG/2 ML INJ ONE (09:40)
[2019-03-08] MEDS ORDERED: FENTANYL CITRATE INJ/PF 250 MCG/5 ML AMPULE ONE (09:40)
[2019-03-08] MEDS ORDERED: PROPOFOL INJ 200 MG/20 ML VIAL IV ONE (09:41)
[2019-03-08] MEDS ORDERED: CEFAZOLIN 1 GM/D5W RTU 1 GM/50 ML RTUPB IV ONE (10:12)
[2019-03-08 10:56] LABS: INTERNATIONAL RATION (INR) 1.16; PROTHROMBIN TIME 14.9 SEC (11.4-15.4)
[2019-03-08 10:57] LABS: PARTIAL THROMBOPLASTIN TIME 31.5 SEC (23.5-35.8)
[2019-03-08] MEDS ORDERED: OXYCODONE-ACETAMINOPHEN 5-325 MG TABLET PO PRN ×2 (11:40)
[2019-03-08] MEDS ORDERED: MEPERIDINE HCL/PF INJ 25 MG/1 ML DISP.SYRIN IV PRN (11:40)
[2019-03-08] MEDS ORDERED: PROMETHAZINE HCL INJ 25 MG/1 ML VIAL IV PRN ×2 (11:40)
[2019-03-08] MEDS ORDERED: DIPHENHYDRAMINE HCL 50 MG/ML VIAL IV PRN (11:40)
[2019-03-08] MEDS ORDERED: FENTANYL CITRATE INJ/PF 100 MCG/2 ML AMPUL IV PRN ×3 (11:40)
[2019-03-08] MEDS ORDERED: ONDANSETRON HCL INJ/PF 4 MG/2 ML SDV ONE (13:22)
[2019-03-08] MEDS ORDERED: NEOSTIGMINE METHYLSULFATE 10 MG/10 ML VIAL ONE (13:22)
[2019-03-08] MEDS ORDERED: LIDOCAINE 2% INJ-PF (20 MG/ML) 2 ML AMPUL ONE (13:22)
[2019-03-08] MEDS ORDERED: GLYCOPYRROLATE 1 MG/5 ML VIAL ONE (13:22)
[2019-03-08] MEDS ORDERED: DEXAMETHASONE SOD PHOSPHATE INJ 4 MG/1 ML VIAL ONE (13:22)
[2019-03-08] MEDS ORDERED: ROCURONIUM BROMIDE INJ 50 MG/5 ML VIAL IV ONE (13:22)
--- NOTE | 2019-03-08 14:38 | Discharge Summary ---
Discharge Summary (SDC) - Discharge Final Diagnosis: #1 end-stage renal disease on hemodialysis. 2. Diabetes mellitus type 2. 3. Hypertension. Date of Surgery: 03/08/19 Discharge Date: 03/08/19 Condition: Good Treatment or Instructions: Discharge home [after recovery per ASU criteria]. Diet , [renal],, ADA, as tolerated, when fully awake advance as tolerated. Activities within moderation encouraged. Follow up in my office by appointment in about [1 week]. Call for appointment. Leave wounds [covered], [keep clean and dry, until office visit in 1 week]. Hold of on school/work [until evaluation in office]. Meds per med rec. Percocet. May shower [in 48 hrs], [try to keep operated area as dry as possible]. Prescriptions: Oxycodone HCl/Acetaminophen [Percocet 5-325 mg Tablet] 1 tab PO ASDIR PRN #15 tab PRN Reason: Referrals: SUDHA HERNADEZ FNP [Primary Care Provider] - Discharge Diet: Other (Comments) - Renal, diabetic. Respiratory Treatments at Home: Deep Breathing/Coughing Discharge Activity: Activity As Tolerated Report the Following to Your Physician Immediately: Shortness of Breath, Unusual Bleeding
[2019-03-08] MEDS: FENTANYL CITRATE INJ/PF 100 MCG/2 ML AMPUL ONE ×2 (14:54→15:03)
[2019-03-08] MEDS ORDERED: OXYCODONE-ACETAMINOPHEN 5-325 MG TABLET ONE (15:39)
[2019-03-08] MEDS ORDERED: FENTANYL CITRATE INJ/PF 100 MCG/2 ML AMPUL ONE (15:41)
--- NOTE | 2019-03-08 16:36 | Operative Report ---
Operative Report DATE OF SURGERY: 03/08/19 PREOPERATIVE DIAGNOSIS: #1 end-stage renal disease on hemodialysis. 2. Diabet es mellitus type 2. 3. Hypertension. POSTOPERATIVE DIAGNOSIS: #1 end-stage renal disease on hemodialysis. 2. Diabetes mellitus type 2. 3. Hypertension. OPERATION: 1. Open mesh repair of umbilical hernia. 2. Omentopexy. Laparoscopic. 3. Laparoscopically guided insertion of peritoneal dialysis catheter. SURGEON: MAI CALLAHAN ANDROID PROGRAMMER: None. ANESTHESIA: GA TISSUE REMOVED OR ALTERED: Not applicable. COMPLICATIONS: None. ESTIMATED BLOOD LOSS: 10 mL. INTRAOPERATIVE FINDINGS: Satisfactory safe access into the peritoneal cavity laparoscopically. Findings of the umbilical hernia catheter for undetected. This was satisfactorily repaired with hernia mesh. Large omentum draping over the pelvis. The lower portion was anchored to the right upper abdomen in order to facilitate efficacy of peritoneal dialysis. The peritoneal dialysis catheter was nicely placed with the coil just down in the pelvis. Easy installation of a liter of heparinized saline and retrieval of 700 mils of saline. The procedure was more complex than usual because of the finding of hernia and the need to do omentopexy. These seemed well tolerated. Photographic documentation done throughout. PROCEDURE: After obtaining informed consent and going over the procedure with [the patient and his family], he was taken to the operating room, [he was] anesthetized and intubated. The abdomen was prepped and draped in the usual sterile fashion. After the universal timeout, in which it was verified that the patient received IV antibiotic, the procedure commenced. The topographical location for the peritoneal dialysis catheter was sketched by applying it to the anterior abdominal wall. The reference point was the pubic symphysis the coil of the catheter, just beneath this level. In this way the position for the cuffs and the external catheter exit were ascertained and marked. The catheter was now replaced in antibiotic containing solution. An entry into the abdomen was sketched just to the right of the midline and transversely in the epigastrium. Local anesthesia was infiltrated. A 1 cm, transverse incision was made with a [15 blade scalpel]. Dissection now proceeded to the medial aspect of the right rectus sheath. This was opened and the muscle gently reflected. The posterior rectus sheath and peritoneum were opened between hemostats and entry was gained to the peritoneal cavity. This allowed introduction of a 5 mm laparoscopic port. The abdomen was now insufflated with carbon dioxide up to a maximum pressure of 12 mm of mercury. The camera was inserted and a good view gained of the abdomen. Given the finding of an umbilical hernia it was decided to do an open repair. Consent was confirmed with the patient's . A longitudinal incision was made just to the right of the umbilicus and dissection proceeded through the subcutaneous tissue to the umbilical stalk which was transected. The hernia defect was now dissected in the preperitoneal plane circumferentially for a distance of about 3 cm in each direction. Hemostasis was secured. A 6.4 mm hernia mesh was now placed in the preperitoneal space and anchored using the contained straps. These were sutured to the fascia about 2 cm away from the verge. The fascial defect was now closed using a continuous suture of 0 PDS. The redundant straps of the mesh were excised before suturing the fascia. The umbilical remnant was now sutured onto the repair using interrupted sutures of 3-0 PDS. 3-0 PDS interrupted used to close subcutaneous tissue. Skin was closed using a continuous subcuticular suture of 4-0 Monocryl. Given the findings of excess omentum down in the pelvis omentopexy was now done. A 5 mm port was inserted in the right upper abdomen under direct vision. A grasper was placed and used to elevate the lower portion of the omentum up towards the right upper to mid abdomen. A small incision was made in the skin and an Endo Close device used to pass a 2-0 PDS suture through the fascia peritoneum and through the omentum. A second pass collected the edge of the suture which was then brought through the small incision and put on moderate tension and then tied thus anchoring the lower portion of the omentum to the right mid abdomen. A second such suture was passed and the omentum also anchored in the same fashion thus performing a secure anchorage of the lower margin of the omentum. Photographs taken before and after show the omentum draped over the pelvis and intestines and, after omentopexy, with the pelvis clear of omentum. Photographs were taken. Local anesthesia was now infiltrated and an incision made in respect to the curve of the catheter. A 1 cm transverse incision was made at this point and dissection proceeded down to the rectus sheath. This was opened and a Veress needle on a reducing sleeve were were now introduced through the rectus muscle and the manipulated down to about 4 cm inferior to the incision. The peritoneum was now entered and the Veress needle removed. The internal cannula was now placed under direct vision. A swan neck peritoneal dialysis catheter was now placed on a stylette. Great care was taken to keep the orientation in reference to the white line on the catheter. It was now inserted into the peritoneal cavity under direct vision, through the introducer. As the catheter entered the abdomen the stylette was slowly withdrawn allowing it to assume its normal orientation and shape within the peritoneal cavity. Both the stylet and introducer were removed so as to place the internal cuff about 3 cm from the entry point of the peritoneal cavity, and within the rectus sheath. This was verified with respect to the incision. The external curve of the catheter was allowed to form precisely at the level of the incision. Externally the catheter was affixed to a Brianne stylette which was now used to tunnel the catheter in the subcutaneous tissues to its exit site where it was now used to exit the skin. The catheter orientation and position and, particularly the 2 cuffs of the catheter were verified. Once this was done the external portion of the catheter was affixed to a Leur lock adapter and connected to a sterile IV tubing. This allowed introduction of 1 L of heparinized saline into the peritoneal cavity via the catheter. This occurred with brisk and free flow of fluid into the peritoneal cavity. Once the entire liter had been infused, the bag was now placed beneath the level of the patient and very satisfactory outflow was observed. With this in place, the camera and the catheter were removed and abdomen desufflated. The subcutaneous tissue in each incision was closed with interrupted 3-0 PDS. The skin in each incision was closed using interrupted and continuous sutures of 4-0 Monocryl. Once about 800 mils of the Infusaid had been passively removed from the abdomen, the catheter was flushed with 10 mL of heparinized solution and capped. The bio a patch was applied at the exit site. Benzoin was applied and Steri-Strips used to reinforce each of the wounds. It was also used to help anchor the Biopatch. It was also used to anchor the main catheter so that any external pressure would not dislodge the catheter. Dry gauze and tape applied and the procedure concluded.
[2019-03-08 17:29] VITALS: BP 147/78
== END 2019-03-08 17:40 | disposition home or self-care (01) ==
LOC: OROUT 08:57
PROVIDERS: ATTEND Surgery
DX: I13.2 Hypertensive heart and chronic kidney disease with heart failure and with stage 5 chronic kidney disease, or end stage renal disease (principal); E11.22 Type 2 diabetes mellitus with diabetic chronic kidney disease; I50.9 Heart failure, unspecified; N18.6 End stage renal disease; Z99.2 Dependence on renal dialysis; K42.9 Umbilical hernia without obstruction or gangrene; E66.9 Obesity, unspecified; D64.9 Anemia, unspecified; Z86.73 Personal history of transient ischemic attack (TIA), and cerebral infarction without residual deficits; Z79.01 Long term (current) use of anticoagulants; Z79.899 Other long term (current) drug therapy; Z79.84 Long term (current) use of oral hypoglycemic drugs; Z68.31 Body mass index [BMI] 31.0-31.9, adult
CPT/HCPCS: 93005; 36415 ×2; 82962; 84132; 85027; 85610; 85730; 80048; 93010; 00790; 49585; 49326; 49324; C1781; J2250; J3490 ×5; J0690; J1100; J3010 ×2; J1644; J2710; A9270; J2405; J2704; J1642; 790

== ENCOUNTER → 2019-07-08 | Outpatient (CLI) | payer MEDICARE, OTHER ==
[~2019-07-08] MED LIST changes: +AMINOPHYLLINE INJ/PF 250 MG/10 ML SDV IV ONE; -CEFAZOLIN 1 GM/D5W RTU 1 GM/50 ML RTUPB IV PRN; +REGADENOSON INJ 0.4 MG/5 ML DISP.SYRIN IV ONE
--- NOTE | 2019-07-09 10:15 | NON-INVASIVE CARDIOLOGY (SQ) ---
INTRAVENOUS LEXISCAN CARDIOLITE STRESS TEST USING SINGLE PHOTON EMMISION COMPUTERIZED TOMOGRAPHIC. DATE OF PROCEDURE: July 08, 2019. INDICATION : Preop cardiovascular examination, patient with end-stage renal disease, diabetes and hypertension. CARDIAC RISK FACTORS: Diabetes, hypertension, end-stage renal disease RESTING EKG: Sinus rhythm with minor nonspecific T wave changes STRESS EKG: No significant ST segment changes noted with LexiScan bolus REASON FOR TERMINATION: Protocol. PROCEDURE REPORT: Baseline heart rate 92 beats per minute with blood pressure of 177/101. Patient had no significant complaints. Patient was bolused with Lexiscan 0.4 mg intravenously followed by saline bolus. Heart rate at 2 minutes post bolus 98 with a blood pressure of 176/94. 3 minutes post bolus heart rate 98 with blood pressure of 191/88. No significant EKG changes were noted. Patient had no significant complaints during the procedure or postprocedure. CONCLUSIONS: Normal EKG and hemodynamic response to IV LexiScan. NUCLEAR DATA: At rest the patient was given 15.0 millicuries of technetium 99 sestamibi injected intravenously. As per protocol rest gated SPECT images were obtained. On day of stress test, the patient was given intravenous LexiScan at a dose of 0.4 mg in 5 mL intravenously, followed by flush with normal saline. Subsequently the stress dose of 45.6 millicuries of technetium 99 sestamibi was injected intravenously. As per protocol stress gated images were obtained. NUCLEAR INTERPRETATION: Both raw and processed data were used for interpretation. Visual, qualitative, computer-generated quantitative data was used. There was good myocardial uptake of technetium compound. Motion artifact and soft tissue attenuations were noted. Increased visceral uptake was noted. No definitive areas of transient perfusion defect noted, No definitive areas of fixed perfusion defect or scars noted. EKG gated imaging showed LV EF at 48 %, rest and stress gated EF similar visually. T. I D. ratio was 1.12. Lung heart ratio noted to be within normal limits 0.31. No significant extracardiac and abnormal radiotracer activities were noted. RV free wall uptake was noted to be WNL. IMPRESSION: Also refer to comments under nuclear interpretation. Also test results needs to be interpreted in the context of pretest probability. 1. No definitive areas of transient perfusion defect noted. 2. There is no definitive scintigraphic evidence of myocardial infarction/scar. 3. EKG gated imaging shows left ventricular ejection fraction of approx. 48 %. 4. Clinical correlation requested as worse disease and or balanced ischemia could be missed. In approximately 10% of the cases Lexiscan may not cause adequate vasodilatory stress. RECOMMENDATIONS: Aggressive risk factor modification and medical management. Further evaluation may be needed if continued symptoms or other high risk indicators are noted on clinical evaluation. Close cardiology follow-up is also recommended. Clinical correlation with echocardiogram derived ejection fraction. Inability to exercise by itself can lead to increased cardiovascular event risks. Consider cardiology consultation and or follow-up if clinically indicated. I am available for cardiology evaluation and consultation if requested by the receivables specialist, unless patient already has a computer game designer. Dr. Monique Zavala. MRCP Board certified in cardiology and sleep medicine. Board certified in nuclear cardiology, adult echocardiography. ALY
== END ==
LOC: RAD 07:30
PROVIDERS: ATTEND Internal Medicine Nephrology
DX: Z01.810 Encounter for preprocedural cardiovascular examination (principal); I12.0 Hypertensive chronic kidney disease with stage 5 chronic kidney disease or end stage renal disease; N18.6 End stage renal disease; E11.22 Type 2 diabetes mellitus with diabetic chronic kidney disease
CPT/HCPCS: 93017; 78452; A9500; J2785; J0280; Q9969

== ENCOUNTER → 2019-07-09 | Outpatient (CLI) | payer MEDICARE, OTHER ==
--- NOTE | 2019-07-09 11:19 | RADIOLOGY REPORT (SQ) ---
EXAM DESCRIPTION: CT ABD/PELVIS NO ORAL OR IV COMPLETED DATE/TIME: 07/09/2019 10:26 am REASON FOR STUDY: R93.5 ABN FINDINGS ON DX IMAGING OF ABD REGIONS, INC RETROPERITON R93.5 ABN FINDI NGS ON DX IMAGING OF ABD REGIONS, INC RETROPE COMPARISON: CT of the abdomen pelvis without contrast from 02/22/2018 and 02/01/2015. TECHNIQUE: CT scan of the abdomen and pelvis performed without intravenous or oral contrast. Images reviewed with lung, soft tissue, and bone windows. Reconstructed coronal and sagittal MPR images revi ewed. All images stored on PACS. All CT scanners at this facility use dose modulation, iterative reconstruction, and/or weight based d osing when appropriate to reduce radiation dose to as low as reasonably achievable (ALARA). [facility]: Dose Right [facility]: CareDose [facility]: Dose Right [facility]: Teradose 4D [facility]: Smart [employer] Mobile RADIATION DOSE: CT Rad equipment meets quality standard of care and radiation dose reduction techniq ues were employed. CTDIvol: 24.7 mGy. DLP: 1452 mGy-cm. LIMITATIONS: None. FINDINGS: LOWER CHEST: The nodular subpleural opacity in the right lower lobe (image 12 of series 2) is unchanged from 02/01/2015. There is no pleural effusion. NON-CONTRASTED LIVER, SPLEEN, ADRENALS: Evaluation is limited due to the absence of intravenous contr ast. There is no CT evidence of hepatic steatosis. The spleen is normal in size. There is no abnor mality of the adrenal glands. PANCREAS: No gross acute abnormality of the pancreas. GALLBLADDER: No acute abnormality that is apparent on CT. RIGHT KIDNEY AND URETER: Evaluation is limited due to the absence of intravenous contrast. The kidne y is atrophic. There is no hydronephrosis, nephrolithiasis, hydroureter or ureterolithiasis LEFT KIDNEY AND URETER: Evaluation is limited due to the absence of intravenous contrast. The kidney is atrophic. There is no hydronephrosis, nephrolithiasis, hydroureter or ureterolithiasis. AORTA AND RETROPERITONEUM: No aneurysm of the abdominal aorta. No retroperitoneal adenopathy, hemorr maria teresa or mass. BOWEL AND PERITONEAL CAVITY: Peritoneal dialysis catheter in place. There is a small amount of ascit es. Diverticula are noted throughout the sigmoid and the descending colon. There is no bowel obstru ction, bowel wall thickening, pericolonic/perienteric inflammation. There is no pneumatosis or free intraperitoneal air. APPENDIX: Normal. PELVIS, BLADDER, AND ABDOMINAL WALL:The urinary bladder is not distended. The prostate gland is enla rged. The inguinal canals are patulous. There is mild asymmetric stranding of the subcutaneous vent ral fat. E tubular and nodular structures in the inguinal regions are unchanged from 02/01/2015. BONES: No acute findings. OTHER: No other finding. IMPRESSION: No acute intra-abdominal abnormality. The kidneys are atrophic and there is a peritonea l dialysis in place with a small amount of ascites in the abdomen and pelvis. The nodular subpleural opacity in the right lower lobe (image 12 of series 2) is stable from 02/01/2015. COMMENT: Quality ID # [id number]: Final reports with documentation of one or more dose reduction techniques (e.g., Automated exposure control, adjustment of the mA and/or kV according to patient size, use of iterative reconstruction technique) TECHNICAL DOCUMENTATION: JOB ID: [id number] [employer]- All Rights Reserved Reading location - IP/workstation name: [email or web address]
== END ==
LOC: RAD 10:17
PROVIDERS: ATTEND Internal Medicine Nephrology
DX: Z01.810 Encounter for preprocedural cardiovascular examination (principal); R93.5 Abnormal findings on diagnostic imaging of other abdominal regions, including retroperitoneum
CPT/HCPCS: 74176